=== PATIENT | female | born 1960 | race Caucasian/White ===

== ENCOUNTER → 2018-05-12 14:27 | Outpatient (CLI) | payer OTHER, SELFPAY ==
--- NOTE | 2018-05-12 14:29 | MM_ITS ---
. MM Dig screening mamm BI w/CAD CAD Screening ORDERING PHYSICIAN : Roque Lloyd MD PATIENT AGE: 57 years GENDER: Female COMPARISON: Previous mammograms: May 2015, May 2016, 2016 INDICATION: Screening mammogram. Previous lumpectomy of left breast. With radiation therapy. No new complaints Family history. Maternal aunt TECHNIQUE: Standard CC and MLO images were obtained. R2 CAD reviewed. FINDINGS: Diffuse some moderately dense heterogeneous fibroglandular elements are seen filling the central portion of breast bilaterally... Mammography is of decreased sensitivity RIGHT BREAST:Stable. No newareas of concern LEFT BREAST:Minor post lumpectomy scarring . Cc view with stable appearing minimal asymmetric density at the lateral left breast on cc view, stable and & it dissipates on the axillary cc view today no discrete or significant change since 2016 when technique consider. The left MLO view appear stable. Minimal postsurgical changes IMPRESSION: Stable bilateral mammogram No significant new findings Follow up one year recommended BI-RADS Category: 2 Benign Finding(s) RECOMMENDED FOLLOW-UP: 1YR - 1 YEAR FOLLOW-UP (A letter has been sent to the patient regarding results of the study.)
== END ==
PROVIDERS: PCP Family Medicine; Visit Provider Obstetrics & Gynecology
DX: Z12.31 Encounter for screening mammogram for malignant neoplasm of breast (principal)
CPT/HCPCS: 77067

== ENCOUNTER → 2019-06-02 15:31 | Outpatient (CLI) | payer MEDICARE, SELFPAY ==
--- NOTE | 2019-06-02 15:33 | XR_ITS ---
XR DEXA axial skeleton HISTORY: ITS.REASON: screening ORDERING PHYSICIAN: Roque Lloyd MD PATIENT AGE: 58 years COMPARISON: 05/15/2017 FINDINGS: The BMD measured at the forearm radius 33% is 0.749 g/sq cm which has a T score of -1.6 consistent with osteopenia. Decreased by 16.9% compared to the previous exam. Mean density of the hips has a T score of -0.5 which is decreased by 3.9%. IMPRESSION: Osteopenia with moderate fracture risk. Treatment is advised. Suggest follow-up exam May 2021.
--- NOTE | 2019-06-02 15:33 | MM_ITS ---
MM Dig screening mamm BI w/CAD CAD Screening COMPARISON: Digital mammograms with CAD 05/12/2018 and 05/15/2017 INDICATION: There is been previous lumpectomy left breast for malignancy with follow-up radiation therapy. There is a history of breast cancer patient's paternal aunt. TECHNIQUE: Standard CC and MLO images were obtained. R2 CAD reviewed. FINDINGS: There is a diffusely dense and heterogenic parenchymal pattern bilaterally. There is mild stable post lumpectomy scarring upper outer quadrant left breast. There is no new or suspicious lesion in either breast and there are no suspicious microcalcifications. There are couple benign-appearing calcifications right breast. IMPRESSION: Moderate diffuse breast density with no suspicious lesion seen BI-RADS Category: 2 Benign Finding(s) RECOMMENDED FOLLOW-UP: 1YR - 1 YEAR FOLLOW-UP (A letter has been sent to the patient regarding results of the study.)
== END ==
PROVIDERS: PCP Family Medicine; Visit Provider Obstetrics & Gynecology
DX: Z12.31 Encounter for screening mammogram for malignant neoplasm of breast (principal); Z78.0 Asymptomatic menopausal state
CPT/HCPCS: 77067; 77080

== ENCOUNTER → 2020-06-22 16:12 | Outpatient (CLI) | payer MEDICARE, SELFPAY ==
--- NOTE | 2020-06-22 16:13 | MM_ITS ---
PROCEDURE: MM DIG SCREENING MAMM BI W/CAD Digital Breast Tomosynthesis Included CLINICAL INDICATION: Routine Screening Mammogram There is a history of breast cancer patient's paternal aunt. There has been a previous biopsy left breast for benign disease. COMPARISON: [facility] DIG MAMM-SCREEN ISAIAS W/CAD from 05/15/2017 [facility] MM Dig screening mamm BI w/CAD from 05/12/2018 DIG MAMM-SCREEN ISAIAS from 06/02/2019 TECHNIQUE: Standard CC and MLO images and 3D Tomosynthesis was obtained. R2 CAD reviewed. FINDINGS: Prominent somewhat heterogenic fibroglandular densities are seen in the central portions of both breasts. There are couple of benign-appearing calcifications right breast. The tech nodules was unable to do hiral images in the cc projection due to the patient's severe scoliotic spinal curvature. There is a stable benign-appearing nodular density deep within the right breast. There is no suspicious lesion and no suspicious microcalcifications. IMPRESSION: Moderately and diffusely dense parenchymal pattern with no suspicious lesions seen BI-RAD Category: 2 Benign Finding(s) FOLLOW-UP: 1YR 1 Year Follow-up (A letter has been sent to the patient regarding results of the study.) Dictated by: Dr. Bert Austin MD 06/25/2020 16:[address] Bert Austin MD in [place] 06/25/2020 16:41
== END ==
PROVIDERS: PCP Family Medicine; Visit Provider Obstetrics & Gynecology
DX: Z12.31 Encounter for screening mammogram for malignant neoplasm of breast (principal)
CPT/HCPCS: 77063; 77067

== ENCOUNTER 2021-01-27 14:37 | Emergency (ER) | payer MEDICARE, SELFPAY ==
[2021-01-27 14:40] VITALS: BP 131/57; PULSE 108; RESP 20; TEMP 36.4; O2SAT 96; BMI 23.8
--- NOTE | 2021-01-27 15:02 | HMH.EDUTC ---
[facility] [place] Disposition Clinical Impression: Dog bite Qualifiers: Encounter type: initial encounter Qualified Code(s): W54.0XXA - Bitten by dog, initial encounter Disposition: Home, Self-Care Condition on Discharge: Good Instructions: DI for Dog Bite Additional Instructions: keep area clean and dry soak leave open to air unless possibility to getting dirty then cover may do vinegar soaks. 1/2 cup warm water to 2 tablespoons distilled vinegar soak for 15 mins and then dry if worsens return or be seen in ed follow up with pcp Prescriptions: Amoxicillin/Potassium Clav [Augmentin 785-125 Tablet] 1 tab PO Q12H 10 Days #20 tab Transmission Status: Pending to [facility] #[id number] Referrals: Heber Ocampo MD [Primary Care Provider] - Time of Disposition: 15:09 Medical Decision Making - Ramiro Inquiry Pt receiving controlled substance: No Vital Signs: 01/27/21 14:40 Temperature 97.5 F L Temperature Source Temporal Artery Scan Pulse Rate [Right Brachial] 108 H Respiratory Rate 20 Blood Pressure [Right Arm] 131/57 L Blood Pressure Mean [Right Arm] 81 Blood Pressure Source [Right Arm] Automatic Cuff Blood Pressure Position [Right Arm] Sitting 02 Sat by Pulse Oximetry 96 Oxygen Delivery Method Room Air [facility] [place] HPI - General Chief complaint: Urgent Treatment Center Stated complaint: [id number] dog bite right pinkie Time Seen by Provider: 01/27/21 15:02 Mode of Arrival: Ambulatory Source of Information: Patient Limitations: No Limitations Description of Symptoms (Recalled from Triage Doc. by RN): PATIENT C/O DOG BITE TO RIGHT PINKIE FRIDAY. DOG IS UP TO DATE ON VACCINES. PATIENT UNSURE OF LAST TDAP. GREEN DRAINAGE AND FOUL ODOR NOTED TO BITE HEENT Symptoms (Recalled from RN notes): No Resp Symptoms (Recalled from RN notes): No Skin Symptoms (Recalled from RN notes): Yes MS Symptoms (Recalled from RN notes): No Functional Status (Recalled from RN notes): WNL - History of Present Illness Provider Complaint: 60 yr old female presents for dog bite to rt pinkie by her dog on . Now has a foul odor and tender. - Related Data Home Medications Medication Instructions Recorded Confirmed albuterol sulfate 90 mcg/actuation 2 puff INHALATION Q6H PRN 05/07/18 05/11/19 breath activated powder inhaler anastrozole 1 mg tablet 1 mg PO DAILY tab 05/07/18 05/11/19 atorvastatin 20 mg tablet 10 mg PO DAILY tab 05/07/18 05/11/19 diazepam 5 mg tablet 5 mg PO .prn tab 05/07/18 05/11/19 duloxetine 30 mg capsule,delayed 30 mg PO BID 05/07/18 05/11/19 release esomeprazole magnesium 20 mg 40 mg PO DAILY cap 05/07/18 05/11/19 capsule,delayed release gabapentin 300 mg capsule 600 mg PO TID 05/07/18 05/11/19 tramadol 100 mg capsule 50 mg PO TID cap 05/07/18 05/11/19 24h,extended release(25-75) diclofenac sodium 75 mg PO 30 Days #60 tab 02/08/19 05/11/19 tablet,delayed release Previous Rx's Medication Instructions Recorded Amoxicillin/Potassium Clav 1 tab PO Q12H 10 Days #20 tab 01/27/21 [Augmentin 875-125 Tablet] Allergies Allergy/AdvReac Type Severity Reaction Status Date / Time No Known Allergies Allergy Verified 06/12/20 14:09 - Worker's Comp Is this a Worker's Comp case?: No [facility] History - Hepatitis A Screen Drug use history?: No High risk sexual behaviors?: No History of sexually transmitted infection?: No Currently employed?: No Childcare worker?: No Do you have indoor plumbing?: Yes Do you have electricity?: Yes Attestation statement:: This patient has been screened for Hepatitis A risk factors. I have reviewed the patient's past medical history: Yes Medical History: Reports:: Asthma, Cancer, Chronic Obstructive Pulmonary Disease (COPD), Depression, Diabetes Mellitus Type 1, Gastroesophageal Reflux Disease(GERD), Valvular Heart Disease Denies:: Diabetes Mellitus Type 2, Internal Pacemaker, Lung Disease, Seizures Other Medical History: Reports: Other Comment:
[2021-01-27 15:08] VITALS: BP 131/57; PULSE 108; RESP 20; TEMP 36.4; O2SAT 96
== END 2021-01-27 15:12 | disposition home or self-care (01) ==
PROVIDERS: Emergency Provider Nurse Practitioner Family; PCP Family Medicine
DX: S61.236A Puncture wound without foreign body of right little finger without damage to nail, initial encounter (principal); W54.1XXA Struck by dog, initial encounter; W54.0XXA Bitten by dog, initial encounter; Z23 Encounter for immunization; E10.9 Type 1 diabetes mellitus without complications; F17.210 Nicotine dependence, cigarettes, uncomplicated; Z79.899 Other long term (current) drug therapy; F33.1 Major depressive disorder, recurrent, moderate
CPT/HCPCS: G0463; 90471; 90715; 99202

== ENCOUNTER → 2021-06-25 15:28 | Outpatient (CLI) | payer MEDICARE, SELFPAY ==
--- NOTE | 2021-06-25 15:28 | MM_ITS ---
PROCEDURE: MM DIG SCREENING MAMM BI W/CAD Digital Breast Tomosynthesis Included CLINICAL INDICATION: screening mammogram COMPARISON: MG [facility] MM Dig screening mamm BI w/CAD from 05/12/2018 MG DIG MAMM-SCREEN ISAIAS from 06/02/2019 MG MM DIG SCREENING MAMM BI W/CAD from 06/22/2020 TECHNIQUE: Standard CC and MLO images and 3D Tomosynthesis was obtained. R2 CAD reviewed. FINDINGS: Heterogeneously dense fibroglandular tissue which may obscure mammographic findings. Benign-appearing nodules right breast unchanged. No malignant appearing mass or malignant-appearing microcalcification. No skin thickening or architectural distortion IMPRESSION: Benign findings. No evidence of malignancy BI-RAD Category: 2 Benign Finding FOLLOW-UP: 1 YR 1 Year Follow-up (A letter has been sent to the patient regarding results of the study.) Dictated by: Mykel Orantes MD 06/29/2021 12:03 Mykel Orantes MD in [place] 06/29/2021 12:03
== END ==
PROVIDERS: PCP Family Medicine; Visit Provider Obstetrics & Gynecology
DX: Z12.31 Encounter for screening mammogram for malignant neoplasm of breast (principal)
CPT/HCPCS: 77063; 77067

== ENCOUNTER → 2022-04-09 09:42 | Outpatient (POV) | payer MEDICARE, SELFPAY | PROVIDERS: Visit Provider Dermatology | DX: Z00.00 Encounter for general adult medical examination without abnormal findings (principal) ==

== ENCOUNTER → 2022-06-26 13:02 | Outpatient (CLI) | payer MEDICARE, SELFPAY ==
--- NOTE | 2022-06-26 13:02 | MM_ITS ---
PROCEDURE INFORMATION: Exam: MG Bilateral Screening 3D Mammography Exam date and time: 06/26/2022 12:59 PM Age: 61 years old Clinical indication: Screening examination TECHNIQUE: Imaging protocol: Bilateral Screening tomosynthesis and 2D mammography including computer-aided detection (CAD) when performed. COMPARISON: 1. MG MM DIG SCREENING MAMM BI W/CAD 06/25/2021 3:35 PM 2. MG MM DIG SCREENING MAMM BI W/CAD 06/22/2020 4:17 PM FINDINGS: MAMMOGRAPHY: Breast composition: The breasts are heterogeneously dense, which may obscure small masses. Mass: None. Architectural distortion: None. Calcifications: No suspicious calcifications. Asymmetric density: None. Skin thickening: None. Axillary adenopathy: None. IMPRESSION: No mammographic evidence of malignancy. Annual screening is recommended unless otherwise clinically indicated. ASSESSMENT: BI-RADS Category 1: Negative
== END ==
PROVIDERS: PCP Nurse Practitioner Family; Visit Provider Obstetrics & Gynecology
DX: Z12.31 Encounter for screening mammogram for malignant neoplasm of breast (principal)
CPT/HCPCS: 77063; 77067

== ENCOUNTER 2022-08-02 11:14 | Emergency (ER) | payer MEDICARE, SELFPAY ==
[2022-08-02 11:50] VITALS: BP 101/76; PULSE 102; RESP 17; TEMP 36.6; O2SAT 98; BMI 24.1
--- NOTE | 2022-08-02 11:53 | XR_ITS ---
FINAL REPORT CLINICAL HISTORY: PAIN FINDINGS: LUMBAR SPINE Three views demonstrate no acute fracture. There is severe levoscoliosis. Spinal rods are seen in the thoracolumbar region. There is severe degenerative change. There is 9 mm of lateral subluxation of L3 on 4. There is 8 mm of lateral subluxation of L4 on 5. Note is made of vascular calcification. IMPRESSION: Degenerative and postoperative changes as detailed above. Reviewed, Interpreted and Dictated by Bogdan Hatfield III, MD Transcribed by Oxana Jones Authenticated and [facility][1]
--- NOTE | 2022-08-02 11:54 | XR_ITS ---
FINAL REPORT CLINICAL HISTORY: PAIN FINDINGS: CERVICAL SPINE Three views demonstrate no acute fracture. There are moderate and severe degenerative changes. Multilevel disc osteophyte complexes are identified. There is vascular calcification. IMPRESSION: Moderate and severe degenerative changes. Reviewed, Interpreted and Dictated by Bogdan Hatfield III, MD Transcribed by Oxana Jones Authenticated and [facility]
--- NOTE | 2022-08-02 12:10 | EXP.UTC ---
Discharge Plan Disposition Patient Disposition: Home, Self-Care Condition: Good Prescriptions Prescriptions: New cyclobenzaprine 10 mg tablet 10 mg PO TID PRN (Reason: muscle spasm) Qty: 15 0RF No Action tramadol 100 mg capsule,ER biphase 24 hr 25-75 50 mg PO TID gabapentin [Neurontin] 300 mg capsule 600 mg PO TID duloxetine [Cymbalta] 30 mg capsule,delayed release(DR/EC) 30 mg PO BID albuterol sulfate 90 mcg/actuation aerosol powdr breath activated 2 puff INHALATION Q6H PRN (Reason: breathing) esomeprazole magnesium [Nexium] 20 mg capsule,delayed release(DR/EC) 40 mg PO DAILY diazepam [Valium] 5 mg tablet 5 mg PO .prn anastrozole [Arimidex] 1 mg tablet 1 mg PO DAILY atorvastatin [Lipitor] 20 mg tablet 10 mg PO DAILY naproxen 500 mg tablet PO BID Referrals Follow up/Referrals: Heber Ocampo MD [Primary Care Provider] - See instructions Activity Restrictions/Add. Instructions Additional Instructions/Restrictions: *Naproxen as prescribed *Remember you had a Toradol shot in the clinic today, which is similar to Motrin and Naproxen so dont take today *Not additional anti-inflammatory like motrin, aleve, advil with the above amount of ibuprofen. You can still take Tylenol every 4 hours as needed if you need something else for pain *Ice 20 minutes every 2 hours for the first 48 hours after the initial injury followed by moist heat every 20 minutes 3-4 times a day to affected area *Muscle relaxer every 8 hours as needed for muscle spasms but remember, it WILL cause drowsiness You cannot take it and drive, operate machinery or care for small children. *Keep this area active, no movement leads to more stiffness, However take it easy and avoid heavy lifting pushing or pulling *Follow up with you family doctor if no improvement for further treatment Clinical Impressions Clinical Impression: Muscle spasm Stand Alone Forms Stand Alone Forms: Work/School Release Instructions Patient Instructions: Cyclobenzaprine, DI for Muscle Spasm Discharge ED Provider: Fifi Kwon [facility] [place] HPI General Stated complaint: neck pain Mode of Arrival: Ambulatory Source of Information: Patient Limitations: No Limitations Time Seen by Provider: 08/02/22 12:11 Description of Symptoms (Recalled from Triage Doc. by RN): PATIENT C/O NECK STIFFNESS AND PAIN TO BACK OF HEAD SINCE FRIDAY MORNING HEENT Symptoms (Recalled from RN notes): Yes Resp Symptoms (Recalled from RN notes): No Skin Symptoms (Recalled from RN notes): No MS Symptoms (Recalled from RN notes): No Functional Status (Recalled from RN notes): WNL History of Present Illness Provider Complaint: Patient states that she woke up Tues and felt like she may have twisted her neck and since it has continued to get worse States that she feels tight and has pain in her neck when she tries to move or turn her head States that feels tight like it is locked up and having spasms State that today she was still hurting so she came in Related Data Home Medications Medication Instructions Recorded Confirmed albuterol sulfate 90 mcg/actuation 2 puff inhalation Q6H PRN breathing 05/07/18 05/11/19 breath activated powder inhaler anastrozole 1 mg tablet (Arimidex) 1 mg PO DAILY breast cancer 05/07/18 05/11/19 atorvastatin 20 mg tablet (Lipitor) 10 mg PO DAILY Cholesterol 05/07/18 05/11/19 diazepam 5 mg tablet (Valium) 5 mg PO .prn Anxiety 05/07/18 05/11/19 duloxetine 30 mg capsule,delayed 30 mg PO BID Depression 05/07/18 05/11/19 release (Cymbalta) esomeprazole magnesium 20 mg 40 mg PO DAILY stomach 05/07/18 05/11/19 capsule,delayed release (Nexium) gabapentin 300 mg capsule 600 mg PO TID Pain 05/07/18 05/11/19 (Neurontin) tramadol 100 mg capsule 50 mg PO TID Pain 05/07/18 05/11/19 24h,extended release(25-75) naproxen 500 mg tablet mg PO BID 05/15/21 Previous Rx's Medication Instructions Recorded cyclo
[2022-08-02 13:39] VITALS: BP 101/76; PULSE 102; RESP 17; TEMP 36.6; O2SAT 98
== END 2022-08-02 13:54 | disposition home or self-care (01) ==
PROVIDERS: Emergency Provider Nurse Practitioner; PCP Family Medicine
DX: M62.838 Other muscle spasm (principal); M54.2 Cervicalgia; R51.9 Headache, unspecified; K21.9 Gastro-esophageal reflux disease without esophagitis; E78.5 Hyperlipidemia, unspecified; J44.9 Chronic obstructive pulmonary disease, unspecified; F32.A Depression, unspecified; F17.210 Nicotine dependence, cigarettes, uncomplicated; Z98.1 Arthrodesis status; Z79.1 Long term (current) use of non-steroidal anti-inflammatories (NSAID); Z79.51 Long term (current) use of inhaled steroids; Z79.899 Other long term (current) drug therapy; X50.1XXA Overexertion from prolonged static or awkward postures, initial encounter
CPT/HCPCS: 72040; 72100; 96372; 99213; G0463

== ENCOUNTER → 2022-08-16 07:49 | Outpatient (CLI) | payer MEDICARE, SELFPAY ==
--- NOTE | 2022-08-16 07:55 | CT_ITS ---
FINAL REPORT CLINICAL HISTORY: CERVICALGIA,DDD,RADICULAR PAIN OF LT UPPER EXT FINDINGS: Axial CT images of the cervical spine were obtained without contrast. Sagittal and coronal reformatted images were also obtained. This study was performed with techniques to keep radiation doses as low as reasonably achievable (ALARA). Individualized dose reduction techniques using automated exposure control or adjustment of mA and/or kV according to the patient's size were employed. There is no evidence of fracture. There is levoscoliosis centered in the upper thoracic spine. There is multilevel degenerative change. There is no evidence of canal stenosis. No paraspinous soft tissue abnormality is seen. Limited images of the upper thorax are unremarkable. C2-3: There are uncovertebral osteophytes. There is mild right neural foraminal narrowing. C3-4: There is a disc osteophyte complex. There is mild right and moderate left neural foraminal narrowing. C4-5: There is disc osteophyte complex. There is mild right and severe left neural foraminal narrowing. C5-6: There is a disc osteophyte complex. There is moderate left neural foraminal narrowing. C6-7: There is a disc osteophyte complex. There is moderate left neural foraminal narrowing. C7-T1: There are uncovertebral osteophytes. There is mild bilateral neural foraminal narrowing. IMPRESSION: Multilevel degenerative disc disease in spondylosis as detailed above. Reviewed, Interpreted and Dictated by Bogdan Hatfield III, MD Transcribed by Rose Mary Puente Authenticated and [facility]
== END ==
PROVIDERS: PCP Nurse Practitioner Family; Visit Provider Nurse Practitioner Family
DX: M50.30 Other cervical disc degeneration, unspecified cervical region (principal); M79.2 Neuralgia and neuritis, unspecified
CPT/HCPCS: 72125

== ENCOUNTER → 2022-10-29 15:41 | Outpatient (CLI) | payer MEDICARE, SELFPAY | PROVIDERS: PCP Nurse Practitioner Family; Visit Provider Nurse Practitioner Family | DX: R00.0 Tachycardia, unspecified (principal) | CPT/HCPCS: 93225; 93226 ==

== ENCOUNTER → 2022-11-13 12:59 | Outpatient (CLI) | payer MEDICARE, SELFPAY ==
--- NOTE | 2022-11-13 13:04 | CT_ITS ---
FINAL REPORT CLINICAL HISTORY: H/O NICOTINE DEPENDENCE, 1 PPD X 43 YEARS FINDINGS: Low-Dose Chest CT CTDI vol (mGy): 2.90 DLP (mGy-cm): 97.95 Axial images were obtained from the lung apex to the mid abdomen by computed tomography. Low-dose protocol was utilized. FINDINGS: CHEST: There is no axillary adenopathy. There is no hilar or mediastinal adenopathy. The heart is proper size. There is no pericardial or pleural effusion. Limited images of the upper abdomen are unremarkable. Lung window images demonstrate mild scarring. There are several less than 5 mm left lung nodules. There is a calcified granuloma in the right lung base. There is dextroscoliosis with spinal rods in place. IMPRESSION: Lung RADS category 2. Recommend 12 month follow-up low-dose chest CT. Reviewed, Interpreted and Dictated by Bogdan Hatfield III, MD Transcribed by Dillon Cedeño Authenticated and [facility]
== END ==
PROVIDERS: PCP Nurse Practitioner Family; Visit Provider Nurse Practitioner Family
DX: Z87.891 Personal history of nicotine dependence (principal); Z12.2 Encounter for screening for malignant neoplasm of respiratory organs
CPT/HCPCS: 71271

== ENCOUNTER → 2023-06-12 15:44 | Outpatient (CLI) | payer MEDICARE, SELFPAY ==
[2023-06-12 17:06] LABS: Basophils # 0.1 K/mm3 (0-0.2); Basophils % 0.4 % (0.1-2.0); Eosinophils # 0.4 K/mm3 (0.0-0.4); Eosinophils % 3.4 % (0.1-12.0); Hemoglobin 12.9 g/dL (12.2-16.2); Lymphocytes % 24.5 % (10-50); Mean Corpuscular HGB Conc 31.6 g/dL (31.8-35.4); Mean Corpuscular Hemoglobin 28.2 pg (27.0-31.2); Mean Corpuscular Volume 89.3 fl (81-99); Mean Platelet Volume 8.2 fl (7.4-10.4); Monocytes # 0.5 K/mm3 (0.1-1.0); Monocytes % 3.8 % (1.7-9.3); Neutrophils # 8.2 K/mm3 (1.8-7.8); Neutrophils % 67.7 % (37.0-80.0); Platelet Count 344 K/mm3 (142-424); Red Blood Count 4.59 M/mm3 (4.20-5.40); White Blood Count 12.1 K/mm3 (4.8-10.8)
[2023-06-12 17:19] LABS: Alanine Aminotransferase 22 U/L (12-78); Albumin Level 4.3 g/dl (3.5-5.0); Alkaline Phosphatase 174 U/L (38-126); Anion Gap 10.6 mEq/L (5-15); Aspartate Amino Transferase 36 U/L (14-36); Bilirubin,Indirect 0.3 mg/dL (0.0-0.9); Bilirubin,Total 0.3 mg/dl (0.2-1.3); Bilirubin,Unconjugated 0.3 mg/dL (0.0-1.1); Blood Urea Nitrogen 13 mg/dl (7-17); Calcium 9.4 mg/dl (8.4-10.2); Carbon Dioxide 28 mmol/L (22.0-30.0); Chloride 104 mmol/L (98-107); Chol/HDL Ratio 2.8 (1-3.5); Cholesterol 235 mg/dl (140-200); Estimated Glomerular Filt Rate 73 ml/min (>60); GFR (African American) 88 ML/MIN (>60); Glucose 89 mg/dl (74-100); HDL Cholesterol 84 mg/dl (40-60); Magnesium 1.9 mg/dl (1.6-2.3); Potassium 4.6 mmoL/L (3.5-5.1); Sodium 138 mmol/L (136-145); Total Protein,Serum 6.8 g/dl (6.3-8.2); Triglycerides 152 mg/dl (30-150); VLDL Cholesterol 30 mg/dL (0-40)
[2023-06-12 17:30] LABS: Direct LDL Cholesterol 110.42 mg/dL (100-129)
[2023-06-12 17:36] LABS: Free T4 (Free Thyroxine) 1.23 ng/dl (0.78-2.19)
[2023-06-12 17:49] LABS: Thyroid Stimulating Hormone 2.31 uIU/mL (0.465-4.68)
== END ==
PROVIDERS: PCP Nurse Practitioner Family; Visit Provider Nurse Practitioner
DX: F17.200 Nicotine dependence, unspecified, uncomplicated (principal); I10 Essential (primary) hypertension; R00.2 Palpitations; R06.00 Dyspnea, unspecified; R07.89 Other chest pain; R42 Dizziness and giddiness; R94.31 Abnormal electrocardiogram [ECG] [EKG]; I63.9 Cerebral infarction, unspecified; I11.9 Hypertensive heart disease without heart failure; E11.9 Type 2 diabetes mellitus without complications
CPT/HCPCS: 36415; 80048; 80061; 80076; 83735; 84439; 84443; 85025

== ENCOUNTER → 2023-06-17 11:28 | Outpatient (CLI) | payer MEDICARE, SELFPAY ==
--- NOTE | 2023-06-17 11:28 | NM_ITS ---
APPROVED REPORT Exam: Nuclear Stress Test Indication: HTN, HYPERLIPIDEMIA, TOB USE, FM HX, C.P., SOB, PALPITATIONS, FTIGUE Patient Location: Outpatient Stress Tech: Fabiola Doll NM Tech:Roxanne Duran, ARRT RT (R)(N)(M) Ht: 5 ft 6 in Wt: 155 lbs Bra Size: 38B HR: 64 bpm BP: 106/62 mmHg BSA: 1.79 m2 Rhythm: NSR BMI: 25.0 History: HTN, HYPERLIPIDEMIA, TOB USE, FM HX, C.P., SOB, PALPITATIONS, FTIGUE PT COULD NOT LAY PRONE DUE TO SCOLIOSIS Procedure: Patient received 0.4 mg of intravenous Lexiscan, resting heart rate 64 bpm, resting blood pressure 106/62 mmHg, with Lexiscan maximum heart rate achieved was 93 bpm which is % of the maximum predicted heart rate and blood pressure was 133/52 mmHg. With Lexiscan, patient denied any complaint of chest pain. Cardiac Stress and Resting SPECT Images: Cardiac Stress and Resting SPECT images were obtained using technetium 99m Myoview 31.0 mCi stress and 10.75 mCi at rest. Patient could not lie on her abdomen for prone imaging. Therefore, prone stress imaging could not be obtained. This may affect the diagnostic interpretation of the study findings. Resting and stress imaging in supine position demonstrate no evidence of fixed or reversible perfusion defects. There is mild increase in transient ischemic dilatation ratio (TID 1.25), which may be suggestive of possible multivessel disease or balanced ischemia. Gated imaging demonstrates normal global and regional LV systolic function. LVEF is calculated at 66%. Conclusion: Patient could not lie on her abdomen for prone imaging. Therefore, prone stress imaging could not be obtained. This may affect the diagnostic interpretation of the study findings. No evidence of fixed or reversible perfusion defects. Mild increase in transient ischemic dilatation ratio (TID 1.25), which may be suggestive of possible multivessel disease or balanced ischemia. Gated imaging demonstrates normal global and regional LV systolic function. LVEF is calculated at 66%. Electronically signed by : Natividad Beth, 06/18/2023 22:52:01
--- NOTE | 2023-06-17 13:27 | CA_ITS ---
APPROVED REPORT Exam: Pharmacologic Technologist: Fabiola Doll Ht: 5 ft 7 in Wt: 155 lbs BSA: 1.81 m2 HR: 66 bpm BP: 106/62 mmHg Rhythm: NSR Indications: Chest pain Medical History Medications: Omeprazole,,,,, Metoprolol,,,,, Gabapentin,,,,, Diazepam,,,,, Atorvastatin,,,,, Naproxen,,,,, Albuterol,,,,, Tramadol,,,,, DulOXETINE,,,,, Stress Test Details Test: LEXISCAN HR Resting HR: 64 bpm Max Heart Rate (APMHR): 159 bpm Max HR Achieved: 93 bpm Target HR (85% APMHR): 135 bpm % of APMHR: 58 Recovery HR: 87 bpm BP Resting BP: 106.0/62.0 mmHg Max BP: 133.0/52.0 mmHg Recovery BP: 131.0/60.0 mmHg ECG Resting ECG: Normal sinus rhythm, early repolarization Stress ECG: No change Arrhythmia: None Recovery ECG: No change Recovery Arrhythmia: None Clinical Exercise duration: 04:00 min Highest Stage Achieved: Exercise capacity: n/a METs Stress ECG Conclusion Symptoms: Nausea, headache Arrhythmias/Ectoy: None ST-T Changes: No significant change compared to baseline Conclusion: Non-diagnostic Lexiscan ECG stress test due to baseline ST abnormalities in the setting of early repolarization. Myoview images are reported separately. Test Summary REST . . . . . . . Resting REST 02:40 . . 64 . 106/ 62 . . Stage 1 . . . . . . . Myoview Injected Stage 1 01:00 . . 87 . . . . Stage 2 01:00 . . 90 . 133/ 52 . . Stage 3 01:00 . . 90 . 119/ 55 . . Stage 4 01:00 . . 86 . 126/ 59 . Stop exercise at 04:00 RECOVERY 01:00 . . 87 . 127/ 56 . . RECOVERY 02:00 . . 84 . 127/ 56 . . RECOVERY 02:33 . . 87 . 131/ 60 . . Electronically signed by : Natividad Beth, 06/18/2023 22:48:54
== END ==
LOC: RAD 11:28
PROVIDERS: PCP Nurse Practitioner Family; Visit Provider Nurse Practitioner
DX: F17.200 Nicotine dependence, unspecified, uncomplicated (principal); I10 Essential (primary) hypertension; R06.00 Dyspnea, unspecified; R07.89 Other chest pain; R42 Dizziness and giddiness; R94.31 Abnormal electrocardiogram [ECG] [EKG]
CPT/HCPCS: 78452; 93017; A9502; J2785

== ENCOUNTER → 2023-06-20 15:19 | Outpatient (CLI) | payer MEDICARE, SELFPAY ==
--- NOTE | 2023-06-20 15:21 | MM_ITS ---
PROCEDURE INFORMATION: Exam: MG Bilateral Screening 3D Mammography Exam date and time: 06/20/2023 3:11 PM Age: 62 years old Clinical indication: Screening. Her paternal aunt had breast cancer. TECHNIQUE: Imaging protocol: Bilateral Screening tomosynthesis and 2D mammography including computer-aided detection (CAD) when performed. COMPARISON: 1. MG MM DIG SCREENING MAMM BI W/CAD 06/26/2022 12:59 PM 2. MG MM DIG SCREENING MAMM BI W/CAD 06/25/2021 3:35 PM 3. MG MM DIG SCREENING MAMM BI W/CAD 06/22/2020 4:17 PM 4. MG DIG MAMM-SCREEN ISAIAS 06/02/2019 3:51 PM FINDINGS: MAMMOGRAPHY: Breast composition: The breasts are heterogeneously dense, which may obscure small masses. Mass: None. Architectural distortion: None. Calcifications: No suspicious calcifications. Asymmetric density: None. Skin thickening: None. Axillary adenopathy: None. IMPRESSION: No mammographic evidence of malignancy. Annual screening is recommended unless otherwise clinically indicated. ASSESSMENT: BI-RADS Category 1: Negative
== END ==
PROVIDERS: PCP Nurse Practitioner Family; Visit Provider Nurse Practitioner Family
DX: Z12.31 Encounter for screening mammogram for malignant neoplasm of breast (principal)
CPT/HCPCS: 77063; 77067

== ENCOUNTER → 2023-06-26 12:46 | Outpatient (CLI) | payer MEDICARE, SELFPAY ==
--- NOTE | 2023-06-26 12:51 | CA_ITS ---
FINAL REPORT CLINICAL HISTORY: dizziness, smoker, sob, COPD, HTN, HLD COMPARISON: None FINDINGS: RIGHT CAROTID: CCA PSV -132 cm/sec ICA PSV -120 cm/sec ICA/CCA PSV ratio -1.3. Comments: Mild plaque disease is noted. LEFTCAROTID: CCA PSV -85. cm/sec ICA PSV -203. cm/sec ICA/CCA PSV ratio -2.4. Comments: Mild plaque disease is noted. Antegrade flow is seen within the vertebral arteries. IMPRESSION: Left carotid stenosis 50 to 69% diameter, with mild plaque. Right carotid stenosis less than 50% diameter, with mild plaque. Antegrade flow bilateral vertebral arteries. Reviewed, Interpreted and Dictated by Sue Fish MD Transcribed by Lorie Simpson Authenticated and [facility]
--- NOTE | 2023-06-26 12:51 | CA_ITS ---
APPROVED REPORT EXAM: Comprehensive 2D, Doppler, and color-flow Echocardiogram Director Of Community Education: Korina Cadena CRT Ht: 5 ft 7 in Wt: 155lbs BSA: 1.81 BP: 150/63 mmHg Indications: Abnormal ECG, COPD, Shortness of Breath, Palpitations, Hyperlipidemia, Hypertension/HDD, smoker TDE d/t lung interference 2D Dimensions LVOT 1.93 cm (M/F) 1.5-2.5 LA Volume 17.10 mL LA Volume Index 9.40 mL/m2 (M/F) 16-34 M-Mode Dimensions RVDd 2.07 cm (0.9-2.6) LA Diam 3.16 cm (1.9-4.0) LVDd 3.64 cm (3.5-5.7) Ao Diam 3.28 cm (2.0-3.7) LVDs 2.53 cm (3.5-5.7) IVSd 1.19 cm (0.6-1.1) PWd 0.84 cm (0.6-1.1) EF (Teich) 58.90% FS 30.50% EDV (Teich) 55.90 mL TAPSE 2.18 (<1.7) ESV (Teich) 23.00 mL LV Diastology E Decel Time 253.00 (160-240 msec) E/A Ratio 0.95 MED E' 5.50 (< 7 cm/sec) MED A' 8.10 cm/s E'/MED E' Ratio 13.02 (>14) LAT E' 6.60 (<10 cm/sec) LAT A' 9.70 cm/s E/LAT E' Ratio 10.85 (>14) Aortic Valve AO Peak GR. 3.20 mmHg Mitral Valve MV A Velocity 75.00 (40-130 cm/s) E/A Ratio 0.95 MV Decel. Time 253.00 (160-240 ms) Pulmonary Valve PV Peak Velocity 100.00 (50-150 cm/s) Tricuspid Valve TR P. Velocity 165.00 cm/s RAP Estimate 10.00 mmHg RVSP 20.80 mmHg Left Ventricle The left ventricle is normal size. The left ventricular systolic function is normal. The left ventricular ejection fraction is within the normal range. There is increased LV wall thickness Regional wall motion is normal. The left ventricular diastolic function is normal. LVEF is 65%. Right Ventricle The right ventricle is normal size. The right ventricular systolic function is normal. Atria The left atrium size is normal. The right atrium size is normal. Aortic Valve The aortic valve is trileaflet. The aortic valve opens well. There is no aortic valvular stenosis. Mild aortic regurgitation is present. Mitral Valve The mitral valve is normal in structure. Trace mitral regurgitation. Tricuspid Valve The tricuspid valve leaflets are thin and pliable. Trace tricuspid regurgitation. RVSP is normal. Pulmonic Valve The pulmonary valve is normal in structure. Trace pulmonic regurgitation. Great Vessels The aortic root is normal in size. IVC is normal in size and collapses >50% with inspiration. Pericardium There is no pericardial effusion. Other Information Study Quality: Technically Difficult. Technically limited study due to difficult accoustic windows. Conclusion Normal biventricular systolic function. Mild AI. Electronically signed by : Natividad Beth, 06/27/2023 11:44:01
== END ==
PROVIDERS: PCP Nurse Practitioner Family; Visit Provider Nurse Practitioner
DX: R42 Dizziness and giddiness (principal); F17.200 Nicotine dependence, unspecified, uncomplicated; I10 Essential (primary) hypertension; R00.2 Palpitations; R06.00 Dyspnea, unspecified; R07.89 Other chest pain; R94.31 Abnormal electrocardiogram [ECG] [EKG]
CPT/HCPCS: 93306; 93880

== ENCOUNTER → 2023-07-22 10:46 | Outpatient (CLI) | payer MEDICARE, SELFPAY ==
--- NOTE | 2023-07-22 10:50 | CT_ITS ---
FINAL REPORT TECHNIQUE: Axial CT images were performed through the head. Coronal reformatted images were submitted. This study was performed with techniques to keep radiation doses as low as reasonably achievable (ALARA). Individualized dose reduction techniques using automated exposure control or adjustment of mA and/or kV according to the patient's size were employed. CLINICAL HISTORY: SYNCOPE COMPARISON: None FINDINGS: The ventricles are normal in size. There is no evidence of hemorrhage. There is no mass or edema identified. There is no abnormal extra-axial fluid seen. The sinuses are well aerated, noted is resection of the medial lynn of the maxillary sinuses bilaterally. IMPRESSION: No acute intracranial process. Reviewed, Interpreted and Dictated by Micheal Mendoza MD Transcribed by Lorie Simpson Authenticated and [facility]
== END ==
LOC: RAD 10:47
PROVIDERS: PCP Nurse Practitioner Family; Visit Provider Nurse Practitioner Family
DX: R55 Syncope and collapse (principal)
CPT/HCPCS: 70450

== ENCOUNTER 2023-08-12 09:00 | Day surgery (SDC) | payer MEDICARE, SELFPAY ==
[2023-08-12] VITALS (10 sets, daily range): BP systolic 97–149; BP diastolic 53–83; PULSE 52–79; RESP 16–20; O2SAT 95–100; BMI 24.4
--- NOTE | 2023-08-12 07:10 | IR_ITS ---
APPROVED REPORT Patient Location: Outpatient PROCEDURES Left heart catheterization Left ventriculogram Selective coronary angiogram Intravascular ultrasound the right coronary INDICATION Accelerated angina pectoris, Risk factors for coronary disease, Angiographic ambiguity of the ostial dominant right coronary, SCAI INDICATION During diagnostic angiography each time the right coronary artery was engaged there was severe dampening. Patient has a history of breast cancer and received extra therapy to her mediastinum approximately 10 years ago. There was a concern for ostial disease in the right coronary artery therefore intravascular ultrasound interrogation was performed Informed consent was obtained prior to the procedure. COMPLICATIONS NONE Estimated Blood Loss: LESS THAN 10 ML TECHNIQUE One percent lidocaine used to anesthetize the right anterior aspect of the wrist. The right radial artery was accessed via the Seldinger technique. A 6 Israeli sheath was placed in the right radial artery. 2.5 mg of Verapamil, 800 mcg of nitroglycerin, 1mg Lidocaine and 5000 U Heparin were given through the arterial sheath. The papa catheter was also used to perform left heart catheterization, left ventriculogram and selective coronary angiogram. At the end the diagnostic angiogram therapeutic heparin was administered giving a therapeutic ACT and the guide catheter was placed in the right coronary followed by Choice PT extra-support wire. The catheter was then pulled out of the ostium of the right coronary due to severe dampening. Intravascular ultrasound probe was advanced in the ostial proximal segment was interrogated. This failed to demonstrate significant stenosis while the MLA was greater than 4 mm??? ostially and proximally. Because of the lack of significant plaque the apparatus was removed the sheath was removed and hemostasis was achieved using TR banding patient was transferred to the postop putting in stable addition ANGIOGRAPHIC RESULTS The left main artery Normal The left anterior descending artery Has proximal smooth 10 to 20% stenosis with mid vessel 10% luminal irregularities The circumflex artery Nondominant normal The right coronary artery Large and dominant with an ostial 30% stenosis followed by proximal and mid vessel 10 to 20% stenoses The RITTER ventriculogram reveals Hyperdynamic 80% The left ventricular end-diastolic pressure 20 mmHg Intravascular ultrasound interrogation indicated mild ostial atheromatous plaque with wide patency ostially and proximally IMPRESSION Mild nonflow limiting coronary disease Hyperdynamic ventricle Elevated LVEDP PLAN 1. Medical management for diastolic dysfunction 2. Risk factor modification Electronically signed by : Pop Woodward MD 08/12/2023 11:42:58
[2023-08-12 09:31] LABS: Basophils % 0.5 % (0.1-2.0); Eosinophils # 0.5 K/mm3 (0.0-0.4); Eosinophils % 5.8 % (0.1-12.0); Hematocrit 41.7 % (37.0-47.0); Hemoglobin 13.3 g/dL (12.2-16.2); Lymphocytes # 2.3 K/mm3 (0.7-4.5); Lymphocytes % 26.5 % (10-50); Mean Corpuscular HGB Conc 31.8 g/dL (31.8-35.4); Mean Corpuscular Volume 91.1 fl (81-99); Mean Platelet Volume 8.6 fl (7.4-10.4); Monocytes # 0.4 K/mm3 (0.1-1.0); Monocytes % 4.4 % (1.7-9.3); Neutrophils # 5.5 K/mm3 (1.8-7.8); Neutrophils % 62.8 % (37.0-80.0); Platelet Count 304 K/mm3 (142-424); Red Blood Count 4.58 M/mm3 (4.20-5.40); Red Cell Distribution Width 14.3 % (11.5-17.5); White Blood Count 8.8 K/mm3 (4.8-10.8)
[2023-08-12 09:41] LABS: Anion Gap 12.1 mEq/L (5-15); Blood Urea Nitrogen 11 mg/dl (7-17); Carbon Dioxide 28 mmol/L (22.0-30.0); Chloride 106 mmol/L (98-107); Creatinine Clearance Estimated 66 mL/min (50-200); Estimated Glomerular Filt Rate 73 ml/min (>60); GFR (African American) 88 ML/MIN (>60); Glucose 98 mg/dl (74-100); Potassium 4.1 mmoL/L (3.5-5.1); Sodium 142 mmol/L (136-145)
[2023-08-12 12:49] LABS: CATHL Activated Clotting Time 287 SEC (74-125)
== END 2023-08-12 14:35 | disposition home or self-care (01) ==
PROVIDERS: PCP Nurse Practitioner Family; Visit Provider Internal Medicine
DX: I10 Essential (primary) hypertension; I25.118 Atherosclerotic heart disease of native coronary artery with other forms of angina pectoris; I65.23 Occlusion and stenosis of bilateral carotid arteries; R00.2 Palpitations; R06.00 Dyspnea, unspecified; R42 Dizziness and giddiness; R94.31 Abnormal electrocardiogram [ECG] [EKG]; R94.39 Abnormal result of other cardiovascular function study; Z82.49 Family history of ischemic heart disease and other diseases of the circulatory system; F17.210 Nicotine dependence, cigarettes, uncomplicated; Z79.899 Other long term (current) drug therapy
CPT/HCPCS: 80048; 85025; 85347; 92978; 93458; 99152; C1725; C1769; J1644; Q9967

== ENCOUNTER 2023-09-29 08:21 | Day surgery (SDC) | payer MEDICARE, SELFPAY ==
[2023-09-29] VITALS (11 sets, daily range): BP systolic 97–187; BP diastolic 52–100; PULSE 66–90; RESP 15–20; O2SAT 94–99; BMI 25.3
--- NOTE | 2023-09-29 07:12 | IR_ITS ---
APPROVED REPORT Patient Location: Outpatient Thermodynamics Professor: MARZENA Sampson RT (R) PROCEDURES Catheter placed in the distal abdominal aorta Distal abdominal aortogram Catheter placement in the right external iliac artery Right external iliac artery antegrade angiogram with unilateral runoff to the right foot Drug-coated balloon angioplasty of the right SFA/popliteal artery at [facility] INDICATION [facility] claudication class III, Abnormal ESTEFANI, Atherosclerosis of the SFA and right popliteal artery Informed consent was obtained prior to the procedure. COMPLICATIONS None Estimated Blood Loss: Less than 10 mls TECHNIQUE 1% lidocaine used to anesthetize the left femoral groin. The left femoral artery was accessed via the Seldinger technique. A 5 [place] sheath was placed in the left femoral artery and a rim catheter was advanced to the distal abdominal aorta. Distal abdominal aortography was performed. Following this the wire was then placed into the right external iliac artery under fluoroscopic guidance and the rim catheter was advanced to the right external iliac artery. Antegrade angiography was performed with unilateral runoff to the right foot. Following this a long advantage wire was then placed down into the right superficial femoral artery and the 5 [place] sheath was exchanged for a long 6 [place] destination sheath. Therapeutic heparin was administered giving a therapeutic ACT. The advantage wire was used to traverse the stenosis. A 6 mm x 60 mm drug-coated balloon was deployed at 8 isha for 3 minutes reducing the severe to critical stenosis to 0%. Excellent angiographic results were obtained. There appeared to be a processing error in the final angiogram was not permanently saved. This was not recognized until after the procedure was completed. Final angiography did demonstrate wide patency of the right SFA popliteal artery with no dissection. At the end of the procedure the apparatus was removed the groin was reprepped gloves were changed sheath was removed hemostasis was achieved using Perclose device patient was transferred to the postop holding in stable condition ANGIOGRAPHIC RESULTS Distal abdominal aorta is moderately atheromatous with no focal stenosis greater than 10% Bilateral common iliac arteries are widely patent as are the bilater external iliac arteries. Bilateral internal iliac arteries are patent Right profunda femoris artery is widely patent. Right superficial femoral artery has mild mid vessel atheromatous plaque with a focal concentric 90% stenosis followed by an eccentric 80% stenosis at [facility]. Distal to these tandem stenoses right popliteal artery is widely patent and gives rise to an anterior tibialis artery posterior tibialis artery and peroneal artery. There is three-vessel runoff into the ankle on the right foot IMPRESSION Focal disease in the right SFA/right popliteal artery at [facility] with successful drug-coated balloon angioplasty reducing this severe tandem stenoses to 0% with 1 drug-coated balloon. PLAN 1. Xarelto 2.5 twice daily plus aspirin 81 mg daily 2. LDL less than 55 to be achieved with high intensity statin 3. Physical therapy 4. Aggressive risk factor modification 5. Avoidance of tobacco products Electronically signed by : Pop Woodward MD 09/29/2023 10:18:07
[2023-09-29 09:02] LABS: Basophils # 0.1 K/mm3 (0-0.2); Basophils % 0.7 % (0.1-2.0); Eosinophils # 0.4 K/mm3 (0.0-0.4); Hemoglobin 12.8 g/dL (12.2-16.2); Lymphocytes # 2.4 K/mm3 (0.7-4.5); Lymphocytes % 32.4 % (10-50); Mean Corpuscular HGB Conc 34.4 g/dL (31.8-35.4); Mean Corpuscular Hemoglobin 31.4 pg (27.0-31.2); Mean Corpuscular Volume 91.2 fl (81-99); Mean Platelet Volume 8.1 fl (7.4-10.4); Monocytes # 0.4 K/mm3 (0.1-1.0); Monocytes % 4.7 % (1.7-9.3); Neutrophils # 4.3 K/mm3 (1.8-7.8); Neutrophils % 57.1 % (37.0-80.0); Platelet Count 330 K/mm3 (142-424); Red Blood Count 4.06 M/mm3 (4.20-5.40); White Blood Count 7.4 K/mm3 (4.8-10.8)
[2023-09-29 09:10] LABS: Chloride 110 mmol/L (98-107); Potassium 3.7 mmoL/L (3.5-5.1); Sodium 141 mmol/L (136-145)
[2023-09-29 09:13] LABS: Anion Gap 9.7 mEq/L (5-15); Blood Urea Nitrogen 10 mg/dl (7-17); Carbon Dioxide 25 mmol/L (22.0-30.0); Creatinine Clearance Estimated 66 mL/min (50-200); Estimated Glomerular Filt Rate 85 ml/min (>60); GFR (African American) 103 ML/MIN (>60); Glucose 113 mg/dl (74-100)
[2023-09-29 14:29] LABS: CATHL Activated Clotting Time 307 SEC (74-125)
== END 2023-09-29 13:24 | disposition home or self-care (01) ==
PROVIDERS: PCP Nurse Practitioner Family; Visit Provider Internal Medicine
DX: I70.211 Atherosclerosis of native arteries of extremities with intermittent claudication, right leg (principal); F17.210 Nicotine dependence, cigarettes, uncomplicated; Z79.899 Other long term (current) drug therapy; I25.118 Atherosclerotic heart disease of native coronary artery with other forms of angina pectoris; J44.9 Chronic obstructive pulmonary disease, unspecified; E78.5 Hyperlipidemia, unspecified; Z82.49 Family history of ischemic heart disease and other diseases of the circulatory system; I65.23 Occlusion and stenosis of bilateral carotid arteries
CPT/HCPCS: 37224; 80048; 85025; 85347; 99152; 99153; C1725; C1760; C1766; C1769; C1894; J1644; Q9966

== ENCOUNTER → 2023-11-05 13:45 | Outpatient (CLI) | payer MEDICARE, SELFPAY ==
[2023-11-05 14:58] LABS: Alanine Aminotransferase 18 U/L (12-78); Alkaline Phosphatase 153 U/L (38-126); Aspartate Amino Transferase 28 U/L (14-36); Bilirubin,Direct 0.1 mg/dl (0.0-0.4); Bilirubin,Indirect 0.2 mg/dL (0.0-0.9); Bilirubin,Total 0.3 mg/dl (0.2-1.3); Bilirubin,Unconjugated 0.2 mg/dL (0.0-1.1); Chol/HDL Ratio 2.3 (1-3.5); Cholesterol 154 mg/dl (140-200); HDL Cholesterol 67 mg/dl (40-60); Total Protein,Serum 6.6 g/dl (6.3-8.2); Triglycerides 208 mg/dl (30-150); VLDL Cholesterol 42 mg/dL (0-40)
[2023-11-05 15:10] LABS: Direct LDL Cholesterol 64.68 mg/dL (100-129)
== END ==
PROVIDERS: PCP Family Medicine; Visit Provider Internal Medicine
DX: F17.200 Nicotine dependence, unspecified, uncomplicated (principal); I10 Essential (primary) hypertension; I25.10 Atherosclerotic heart disease of native coronary artery without angina pectoris; I65.29 Occlusion and stenosis of unspecified carotid artery; I73.9 Peripheral vascular disease, unspecified; R06.00 Dyspnea, unspecified; R42 Dizziness and giddiness; R94.31 Abnormal electrocardiogram [ECG] [EKG]; Z82.49 Family history of ischemic heart disease and other diseases of the circulatory system
CPT/HCPCS: 36415; 80061; 80076

== ENCOUNTER → 2023-11-13 14:20 | Outpatient (CLI) | payer MEDICARE, SELFPAY ==
--- NOTE | 2023-11-13 14:22 | CA_ITS ---
FINAL REPORT TECHNIQUE: Real-time imaging was performed of the extracranial carotid arteries in transverse and longitudinal planes, with color duplex evaluation of blood flow velocity. Spectral analysis was performed. The cervical vertebral arteries were also examined. CLINICAL HISTORY: TIMOTHY, SMOKER, HTN, HLD COMPARISON: None FINDINGS: NASCET technique is utilized for stenosis evaluation. Right carotid system (centimeters/second): CCA: 103 ICA: 125 ECA: 170 Vertebral artery: Antegrade ICA/CCA ratio: 1.95 Mild to moderate plaque is identified at the bifurcation. Left carotid system (centimeters/second): CCA: 88 ICA: 151.8 ECA: 120 Vertebral artery: Antegrade ICA/CCA ratio: 2.2 Mild to moderate plaque is identified at the bifurcation. IMPRESSION: Less than 50% right ICA stenosis. Less than 50% left ICA stenosis. Antegrade flow bilateral vertebral arteries. Reviewed, Interpreted and Dictated by Micheal Mendoza MD Transcribed by Lorie Simpson Authenticated and [facility]
== END ==
LOC: RT 14:22
PROVIDERS: PCP Family Medicine; Visit Provider Physician Assistant
DX: I65.23 Occlusion and stenosis of bilateral carotid arteries (principal); Z72.0 Tobacco use
CPT/HCPCS: 93880

== ENCOUNTER 2023-12-30 13:57 | Outpatient (CLI) | payer MEDICARE, SELFPAY ==
--- NOTE | 2023-12-30 14:04 | CT_ITS ---
FINAL REPORT CLINICAL HISTORY: SCREENING smoker 1/2 ppd x 44 years hx of breast cancer COMPARISON: 11/13/2022 FINDINGS: CT CHEST LOW DOSE SCREENING HISTORY: Screening exam for lung cancer. 63-year-old female, Current smoker, 22 pack year smoking history DOSE: CTDIvol: 2.9 mGy, DLP: 96.38 mGy*cm COMPARISON: 11/13/2022. TECHNIQUE: Axial CT without IV contrast administration using low dose protocol FINDINGS: No acute lung disease is present . There are a few small scattered 4 mm or less in size bilateral nodules, some are calcified. The overall appearance is stable, and consistent with limits. No pleural or pericardial effusion is seen . Advanced changes of scoliosis are identified. No adenopathy or mass lesion is present . IMPRESSION: Multiple 4 mm or less in size bilateral nodules, stable. LUNG RADS CATEGORY 2 RECOMMENDATION: 12 month LDCT follow up Reviewed, Interpreted and Dictated by Sue Fish MD Transcribed by Lorie Simpson Authenticated and . [facility]
== END 2023-12-30 23:59 ==
LOC: RAD 13:58
PROVIDERS: PCP Family Medicine; Visit Provider Nurse Practitioner
DX: Z12.2 Encounter for screening for malignant neoplasm of respiratory organs; Z87.891 Personal history of nicotine dependence; J44.9 Chronic obstructive pulmonary disease, unspecified
CPT/HCPCS: 71271

== ENCOUNTER 2024-02-02 14:15 | Outpatient (CLI) | payer MEDICARE, SELFPAY ==
--- NOTE | 2024-02-02 14:20 | XR_ITS ---
FINAL REPORT TECHNIQUE: 5 views CLINICAL HISTORY: neck pain that radiates into the left shoulder COMPARISON: None FINDINGS: There is no fracture present. There is no malalignment. There is mild and moderate degenerative change of the cervical spine. There is mild kyphosis present centered at the C5-6 level. There is mild left C4-5 neural foraminal narrowing, and moderate left C6-7 neuroforaminal narrowing. There is mild multilevel neural foraminal narrowing at multiple levels on the right side. IMPRESSION: Mild to moderate degenerative change, with multilevel neural foraminal narrowing as described above. Reviewed, Interpreted and Dictated by Bogdan Hatfield III, MD Transcribed by Lorie Simpson Authenticated and [facility]
== END 2024-02-02 23:59 ==
LOC: RAD 14:16
PROVIDERS: PCP Nurse Practitioner Family; Visit Provider Nurse Practitioner Family
DX: M54.2 Cervicalgia (principal)
CPT/HCPCS: 72050

== ENCOUNTER 2024-02-23 14:08 | Outpatient (CLI) | payer MEDICARE, SELFPAY ==
--- NOTE | 2024-02-23 14:12 | XR_ITS ---
FINAL REPORT CLINICAL HISTORY: low abd pressure FINDINGS: A single supine view of the abdomen was obtained. There is no prior for comparison. The bowel gas pattern is normal. There is a large amount of stool in the colon. There are no pathologic calcifications. Osseous structures demonstrate spinal rods in place. There is levoscoliosis. Calcifications in the pelvis are likely phleboliths. IMPRESSION: No acute intraabdominal abnormality. Large amount of stool. Reviewed, Interpreted and Dictated by Alana Riedr MD Transcribed by Eun Ag Authenticated and [facility]
== END 2024-02-23 23:59 ==
LOC: RAD 14:10
PROVIDERS: PCP Nurse Practitioner Family; Visit Provider Nurse Practitioner Family
DX: N39.0 Urinary tract infection, site not specified (principal); R10.2 Pelvic and perineal pain; R31.9 Hematuria, unspecified; R30.0 Dysuria; B96.29 Other Escherichia coli [E. coli] as the cause of diseases classified elsewhere
CPT/HCPCS: 74018; 87086

== ENCOUNTER 2024-02-26 16:00 | Outpatient (RCR) | payer MEDICARE, SELFPAY ==
--- NOTE | 2024-02-24 11:48 | HMH.PTOPEV ---
PT Outpatient Evaluation Rehab PT Outpatient Evaluation Start: 02/23/24 14:50 Freq: Status: Active Protocol: Document 02/23/24 14:51 MATTEO (Rec: 02/23/24 16:15 MATTEO [email or web address]) E-signed By Tracey Hernandez, PT Outpatient Therapy Subjective History Subjective History This is an initial evaluation for Denise Villagomez who presents with referral for Chronic neck pain. Pt with complaints of chronic neck pain that began originally in 2021. Pt reports these complaints insidiously worsened 2 weeks ago when she noticed sharp pain from her left lateral neck to left shoulder/shoulder blade when driving. Pt denies any known trauma that would lead to increase in symptoms. Pt has been using heat and laying down as non-pharm pain management techniques. Pt reports looking left and down aggrevates the pain the most. Denies numbness and tingling, vision changes, or nausea. PMH: Breast cancer (not active ), Osteopenia, Asthma, COPD, CAD, Depression, GERD, Hyperlipidemia, Mitral valve prolapse, Slipped intervertebral disc, Peters Francis placement [address] IMPRESSION: Multilevel degenerative disc disease in spondylosis. 2023 X-ray IMPRESSION: Mild to moderate degenerative change, with multilevel neural foraminal narrowing as described above. New diagnosis of cancer in past 12 No months? Chief Complaint Pain,Stiff Symptom Type Ache,Sharp,Dull Symptoms Relieved By Rest/Positioning,Heat,OTC Meds Symptoms Aggravated By Prone,Standing,Physical Activity,Twisting,Lifting Current Functional Limitations Reaching,Lifting,Housework, Desk Work/Reading,Driving, Standing,Sitting,Recreation Activity Symptom Description Constant but Variable Level of pain today (0-10) 5 Pain scale - at its best (0-10) 1 Pain scale - at its worst (0-10) 10 Cervical Eval Palpation Cervical Muscles L Cervical Paraspinal,L Suboccipital,L Upper Trapezius ,L Thoracic Paraspinals Cervical/Thoracic Palpation Findings Tenderness Posture Head/C-Spine Posture Sitting Position Neutral Position Flexibility Deficits Upper Trapezius Muscle Length (R) Moderate Tightness,(L) Moderate Tightness Levaetor Scapulae Muscle Length (R) Moderate Tightness,(L) Moderate Tightness Pectoralis Major Muscle Length (L) Mild Tightness Passive Joint Mobility Cervical PIVM Dec: L C2/3 L C3/4 L C4/5 AROM Cervical Spine Extension Active Range of 15 Motion (degrees) Cervical Spine Flexion Active Range of 20 Motion (degrees) Cervical Spine Right Lateral Flexion 20 Active Range of Motion (degrees) Cervical Spine Left Lateral Flexion 15 Active Range of Motion (degrees) Cervical Spine Right Rotation Active 20 Range of Motion (degrees) Cervical Spine Left Rotation Active 24 Range of Motion (degrees) MMT Right Deltoid (C5) 4 Good Biceps Brachii Strength Grade 5 Normal Wrist Extension Strength Grade 5 Normal Triceps Brachii Strength Grade 5 Normal Left Deltoid (C5) 4- Good- Biceps Brachii Strength Grade 4 Good Wrist Extension Strength Grade 5 Normal Triceps Brachii Strength Grade 5 Normal Special Test C-Spine Foraminal Compression (Spurling) Positive Left Test Neck Disability Index Neck Disability Index Section 1: Pain Intensity The pain is moderate at the moment Section 2: Personal Care (washing, I can look after myself dressing, etc.) normally but it causes extra pain Section 3: Lifting Pain prevents me from lifting heavy weights, but I can manage light to Section 4: Reading I can read as much as I want with moderate pain in my neck Section 5: Headaches I have slight headaches, which come infrequently Section 6: Concentration I can concentrate fully when I want to with no difficulty Section 7: Work I can't do any work at all Section 8: Driving I can't drive my car as long as I want because of moderate pain in my Section 9: Sleeping My sleep is slightly disturbed (less than 1 hr sleepless) Section 10: Recreation I can hardly do any recreation activities because of pain in my neck NDI Score 22 Outpatient Therapy Assessment Impairments Problems/Impairmments Palpation Tenderness,Impaired Range of Motion,Impaired Strength,Impaired Driving, Impaired Lifting,Impaired Work Activities,Impaired Desk/ Computer Activities,Subjective C/O Pain,Impaired Self Care/ Self Management Prognosis Rehab Potential Good Comment Pt presents with symptoms consistent with her diagnosis and imaging results. Pt with impaired cervical ROM, tight left cervical and shoulder muscultaure, 2/4 TTP L UT, decreased Cervical segmental mobility. Pt would benefit from skilled outpatient PT to address deficits and decrease pain. Clinical Impression Consistent with Diagnosis Yes Consistent with Chronic neck pain Short Term Goals Number of Weeks 3 Decreased Palpation Tenderness Yes: 1/4 TTP affected musculature Increase Range of Motion Yes: by 5 degrees in all planes Improve Neck Disability Index Score Yes: Improve by 4 points to demo decreased self-reported disability. Decrease Subjective C/O Pain Yes: At worst 7/10 to decrease pain severity Patient to be Ind w/ HEP Yes Half-Way Goals Number of Weeks 6 Decreased Palpation Tenderness Yes: 0/4 TTP L upper traps Increase Range of Motion Yes: Cervical AROM WFL Increase Strength Yes: 5/5 L scap stabilizers and UE. Improve Neck Disability Index Score Yes: Score reflecting mild disability. Decrease Subjective C/O Pain Yes: 48 hr pain average of 3/ 10 to indicate decreased severity and irritability Patient to be Ind w/ Advanced HEP Yes Outpatient Therapy Plan of Care Treatment Plan May Include Therapeutic Exercise Including Home Yes Exercise Program Manual Therapy Techniques Yes Neuromuscular Re-education Yes Therapeutic Activities to Return to Yes Previous Functional/Work Level ADL/Self Care Education Yes Dry Needling Yes Thermal Modalities Yes Electrical Stimulation Yes Ultrasound/Phonophoresis Yes Iontophoresis Yes Massage Yes Eval/Re-Eval Yes Aquatic Therapy Yes Frequency Times per week 1-2 times Duration Number of Weeks 5-6 weeks Addendums This patient is a candidate for social No or vocational rehab? Patient/Guardian verbally acknowledges Yes understanding of treatment program and consents to further treatment? Patient/Guardian verbally acknowledges Yes understanding of diagnosis, prognosis and goals for treatment? Eval Complexity PT Charges 47805 - Moderate Complexity Shoulder/Elbow Eval Shoulder Objective Measurements Elbow Objective Measurements PHYSICIAN CERTIFICATION: I certify the specified therapy services for Denise Villagomez are required, authorized, and reviewed every 30 days.
== END 2024-02-26 17:05 | disposition home or self-care (01) ==
LOC: PT 16:00
PROVIDERS: Visit Provider Nurse Practitioner Family
DX: Q76.49 Other congenital malformations of spine, not associated with scoliosis (principal); M54.50 Low back pain, unspecified; G89.29 Other chronic pain
CPT/HCPCS: 97110; 97163; 97530

== ENCOUNTER 2024-03-02 15:12 | Outpatient (CLI) | payer MEDICARE, SELFPAY ==
--- NOTE | 2024-03-02 15:13 | MR_ITS ---
FINAL REPORT CLINICAL HISTORY: Cervical neck pain, straight-backed syndrome. UNABLE TO TURN NECK. HEADACHE FINDINGS: Multiplanar MR imaging of the cervical spine was performed without contrast. On the sagittal T2-weighted images, disc degeneration is seen at multiple levels. There is no evidence of fracture. There is mild kyphosis centered at C5-6. The cervical spinal cord has an unremarkable appearance without evidence of mass, edema or syrinx. No significant canal stenosis is identified. The cervicomedullary junction is normal. C2-3: Bilateral uncovertebral osteophytes are seen, larger on the right. There is mild right neural foraminal narrowing. C3-4: A disc osteophyte complex is present. Mild right and severe left neural foraminal narrowing is seen. C4-5: A disc osteophyte complex is present. Mild right and severe left neural foraminal narrowing is seen. C5-6: A disc osteophyte complex is present. Mild left neural foraminal narrowing is seen. C6-7: A disc osteophyte complex is present. There is moderate left neural foraminal narrowing. C7-T1: A disc bulge is present with uncovertebral osteophytes. A small central disc protrusion is present. Mild bilateral neural foraminal narrowing is seen. IMPRESSION: Multilevel degenerative disc disease and spondylosis with bilateral neural foraminal narrowing as described. Small central C7-T1 disc protrusion. Authenticated and [facility]
== END 2024-03-02 23:59 ==
LOC: RAD 15:13
PROVIDERS: PCP Nurse Practitioner Family; Visit Provider Nurse Practitioner Family
DX: Q76.49 Other congenital malformations of spine, not associated with scoliosis (principal); M54.2 Cervicalgia
CPT/HCPCS: 72141; 76376

== ENCOUNTER 2024-06-11 16:29 | Outpatient (CLI) | payer MEDICARE, SELFPAY | END 2024-06-11 23:59 | disposition home or self-care (01) | LOC: LAB.DROPOF 16:30 | PROVIDERS: PCP Nurse Practitioner Family; Visit Provider Nurse Practitioner Family | DX: N39.0 Urinary tract infection, site not specified (principal); B96.20 Unspecified Escherichia coli [E. coli] as the cause of diseases classified elsewhere | CPT/HCPCS: 87086; 87088; 87186 ==

== ENCOUNTER 2024-07-05 14:43 | Outpatient (CLI) | payer MEDICARE, SELFPAY ==
--- NOTE | 2024-07-05 14:44 | MR_ITS ---
FINAL REPORT CLINICAL HISTORY: dizziness, falling, loss of balance COMPARISON: None FINDINGS: Multiplanar MR imaging of the brain was performed without contrast. There is mild age-appropriate atrophy. There are scattered foci of increased T2 signal in the cerebral white matter that have a nonspecific appearance but likely represent mild chronic ischemic/gliotic changes. There is no evidence of intracranial hemorrhage or mass. No abnormal ventricular dilatation is identified. No abnormal extra-axial fluid collection is seen. No abnormality is seen on the diffusion weighted images. The posterior fossa and brainstem are unremarkable. Normal major vessel vascular flow voids are seen. There is opacification of several mastoid air cells. IMPRESSION: Age-appropriate atrophy and mild chronic ischemic/gliotic changes. No acute intracranial abnormality. Reviewed, Interpreted and Dictated by Bogdan Hatfield III, MD Transcribed by Lorie Simpson Authenticated and [facility]
--- NOTE | 2024-07-05 15:29 | MM_ITS ---
PROCEDURE INFORMATION: Exam: MG Bilateral Screening 3D Mammography Exam date and time: 07/05/2024 3:13 PM Age: 63 years old Clinical indication: Screening examination TECHNIQUE: Imaging protocol: Bilateral Screening tomosynthesis and 2D mammography including computer-aided detection (CAD) when performed. COMPARISON: 1. MG MM DIG SCREENING MAMM BI W/CAD 06/20/2023 3:11 PM 2. MG MM DIG SCREENING MAMM BI W/CAD 06/26/2022 12:59 PM FINDINGS: MAMMOGRAPHY: Breast composition: The breasts are heterogeneously dense, which may obscure small masses. Mass: None. Architectural distortion: None. Calcifications: No suspicious calcifications. Asymmetric density: None. Skin thickening: None. Axillary adenopathy: None. IMPRESSION: No mammographic evidence of malignancy. Annual screening is recommended unless otherwise clinically indicated. ASSESSMENT: BI-RADS Category 1: Negative
== END 2024-07-05 23:59 | disposition home or self-care (01) ==
LOC: RAD 14:43
PROVIDERS: PCP Nurse Practitioner Family; Visit Provider Nurse Practitioner Family
DX: R26.89 Other abnormalities of gait and mobility (principal); R42 Dizziness and giddiness; Z12.31 Encounter for screening mammogram for malignant neoplasm of breast
CPT/HCPCS: 70551; 77063; 77067

== ENCOUNTER 2024-07-15 15:17 | Outpatient (CLI) | payer MEDICARE, SELFPAY ==
[2024-07-15 13:12] LABS: Microscopic, Urine URINE MICROSCOPIC (MICROSCOPIC)
[2024-07-15 14:27] LABS: Appearance,Urine CLEAR (Clear); Bilirubin,Urine Negative (Negative); Blood, Urine Negative (Negative); Color,Urine YELLOW (Yellow); Glucose,Urine (UA) Negative (Negative); Ketones,Urine Negative (Negative); Leukocyte Esterase,Urine 2+ (Negative); Nitrate,Urine Negative (Negative); Protein,Urine Negative (Negative); Urobilinogen,Urine 0.2 EU/dl (0.2)
[2024-07-15 15:21] LABS: WBC,Urine 50-100 #/hpf (0-3)
[2024-07-15 15:22] LABS: Bacteria,Urine 3+ /lpf; Squamous Epithelial Cell,Urine 20-50 #/hpf (0-5)
== END 2024-07-15 23:59 | disposition home or self-care (01) ==
LOC: LAB.DROPOF 15:17
PROVIDERS: PCP Nurse Practitioner Family; Visit Provider Nurse Practitioner Family
DX: R35.0 Frequency of micturition (principal); N39.0 Urinary tract infection, site not specified
CPT/HCPCS: 81001; 87086; 87088; 87186

== ENCOUNTER 2024-08-12 10:27 | Day surgery (SDC) | payer MEDICARE, SELFPAY ==
[2024-08-12 10:45] VITALS: BMI 24.5
[2024-08-12 10:46] VITALS: BP 137/74; PULSE 77; RESP 18; TEMP 36.2; O2SAT 99
--- NOTE | 2024-08-12 12:21 | EXP.TILT ---
Findings:: PROCEDURE: Tilt Table Test REQUESTING PROVIDER: Ama Armstrong MD INDICATION: Dizziness, falls, orthostatic hypotension BETA BLOCKERS: Metoprolol succinate 100 mg was taken approximately 11.5 hours prior to the test PRE-TEST VITAL SIGNS (supine): BP 107/64, HR 66 and sinus rhythm, O2 Sats 100% PROCEDURE SUMMARY: Patient was prepped per protocol, IV started, connected to heart, blood pressure and oxygen saturation monitors, and safety straps applied. She was then tilted upright to 70 degrees for a total of 30 minutes. Other than getting tired of standing, she denied any symptoms during the test. Specifically, she denied any dizziness, lightheadedness, near syncope or syncope. Her blood pressure remained basically within a normal range throughout the test with minimal fluctuations. Immediately after being placed upright her BP will to 132/70 (HR 71). Blood pressure remained relatively unchanged until after 24 minutes upright, when it dropped to 114/68, which was a 20 mmHg systolic drop from the previous reading. This was not associated with any symptoms. Five minutes later the blood pressure had risen to 123/72. Heart rate stayed in the 70s and low 80s while upright. Heart rhythm was normal sinus throughout. Oxygen saturation stayed in the high 90s to 100%. CONCLUSIONS: Unremarkable, asymptomatic tilt table test.
== END 2024-08-12 12:20 | disposition home or self-care (01) ==
PROVIDERS: PCP Nurse Practitioner Family; Visit Provider Internal Medicine
DX: R55 Syncope and collapse (principal); R42 Dizziness and giddiness; R29.6 Repeated falls; I95.1 Orthostatic hypotension; Z79.899 Other long term (current) drug therapy
CPT/HCPCS: 93660

== ENCOUNTER 2024-09-01 15:00 | Outpatient (RCR) | payer MEDICARE, SELFPAY ==
--- NOTE | 2024-08-24 16:27 | HMH.PTOPEV ---
PT Outpatient Evaluation Rehab PT Outpatient Evaluation Start: 08/24/24 16:12 Freq: Status: Active Protocol: Document 08/24/24 16:13 PHORNE (Rec: 08/24/24 16:27 PHORNE [id number]) E-signed By Jose Hernandez, PT Outpatient Therapy Subjective History Subjective History This is the initial PT eval for Denise Villagomez, 63 yowf who presents with c/o poor balance , dizziness, and falls. She reports most of her issues have been ongoing for ~ 1 yr. She does not reports vertigo, but just feels dizzy and sometime lightheaded. She has long hx of difficulty walking due to significant lumbar fusion with Evelin iveth placement at age 16. She also reports she is awaiting B eye cataract surgery with significant reduction in vision. She has PMH as follows : Arthritis Cancer Cataract GERD (gastroesophageal reflux disease) Anxiety Angina pectoris Abnormal ankle brachial index (ESTEFANI) Peripheral arterial disease Hypertension Coronary artery disease Mitral valve prolapse Slipped intervertebral disc Depression Urinary tract infection History of gastroesophageal reflux (GERD) COPD (chronic obstructive pulmonary disease) Asthma Hyperlipidemia New diagnosis of cancer in past 12 No months? Chief Complaint Other Symptoms Aggravated By Physical Activity,Walking Prior Functional Limitations None Current Functional Limitations Recreation Activity,Walking Symptom Description Intermittent,Activity Dependent Balance Eval Nystagmus Nystagmus Presence None Oculomotor Gaze Oculomotor Gaze Nml: Vergence Smooth Pursuit Saccades VOR Cancellation Cover/Uncover Cross Cover Rhomberg Feet Together/Eyes open/Stable Surface pass Feet Together/Eyes Closed/Stable Surface fail Feet Together/Eyes open/Unstable Surface fail Feet Together/Eyes Closed/Unstable fail Surface Dynamic Gait Index Test Protocol Gait Level Surface Mild Impairment Query Text: Instructions: Walk at your normal speed from here to the next elicia (20'). Grading: Elicia the lowest category that applies. Change in Gait Speed Normal Query Text: Instructions: Begin walking at your normal pace (for 5'), when I tell you go , walk as fast as you can (for 5'). When I tell you slow , walk as slowly as you can (for 5'). Grading: Elicia the lowest category that applies. Gait with Horizontal Head Turns Mild Impairment Query Text: Instructions: Begin walking at your normal pace. When I tell you to look right , keep walking straight, but turn you head to the right. Keep looking to the right unit I tell you look left , then keep walking straight and turn your head to the left. Keep your head to the left until I tell you look straight , then keep walking straight, but return you head to the center. Grading: Elicia the lowest category that applies. Gait with Vertical Head Turns Mild Impairment Query Text: Instructions: Begin walking at your normal pace. When I tell you to look up , keep walking staight, but tip your head up. Keep looking up until I tell you to look down , then keep walking straight and tip your head down. Keep your head down until I tell you look straight , then keep walking straight, but return your head to the center. Grading: Elicia the lowest category that applies. Gait and Pivot Turn Mild Impairment Query Text: Instructions: Begin walking at your normal pace. When I tell you turn and stop , turn as quickly as you can to face the opposite direction and stop. Grading: Elicia the lowest category that applies. Step Over Obstacle Normal Query Text: Instructions: Begin walking at your normal speed. When you come to the shoebox, step over it, not around it and keep walking. Grading: Elicia the lowest category that applies. Step Around Obstacles Normal Query Text: Instructions: Begin walking at normal speed. When you come to the first cone (about 6' away), walk around the right side of it. When you come to the second cone (6' past first cone), walk around it to the left. Grading: Elicia the lowest category that applies. Steps Moderate Impairment Query Text: Instructions: Walk up these stairs as you would at home. At the top, turn around and walk down. Grading: Elicia the lowest category that applies. Scoring Dynamic Gait Index Score 18 Outpatient Therapy Assessment Impairments Problems/Impairmments Impaired Balance,Impaired DGI Score,Impaired Self Care/Self Management Prognosis Rehab Potential Good Comment Skilled therapy is indicated to improve pts dynamic standing balance to return to PLOF. Clinical Impression Consistent with Diagnosis Yes Short Term Goals Number of Weeks 2 Improve Balance Yes: Pass rhomberg with eyes closed feet together Increase DGI Score Yes: > 20 Patient to be Ind w/ HEP Yes Casting Machine Set Up Operator Goals Number of Weeks 4 Improve Balance Yes: Pass rhomberg eyes open unstable surface Increase DGI Score Yes: > 22 Patient to be Ind w/ Advanced HEP Yes Outpatient Therapy Plan of Care Treatment Plan May Include Therapeutic Exercise Including Home Yes Exercise Program Manual Therapy Techniques Yes Neuromuscular Re-education Yes Therapeutic Activities to Return to Yes Previous Functional/Work Level Gait Training Yes ADL/Self Care Education Yes Orthotics/Bracing/Splinting Yes Eval/Re-Eval Yes Frequency Times per week 1-2 Duration Number of Weeks 4 Addendums This patient is a candidate for social No or vocational rehab? Patient/Guardian verbally acknowledges Yes understanding of treatment program and consents to further treatment? Patient/Guardian verbally acknowledges Yes understanding of diagnosis, prognosis and goals for treatment? Eval Complexity PT Charges 86210 - High Complexity Shoulder/Elbow Eval Shoulder Objective Measurements Elbow Objective Measurements PHYSICIAN CERTIFICATION: I certify the specified therapy services for Denise Villagomez are required, authorized, and reviewed every 30 days.
== END 2024-09-01 15:05 | disposition home or self-care (01) ==
LOC: PT 15:00
PROVIDERS: Visit Provider Specialist
DX: R42 Dizziness and giddiness (principal); I95.1 Orthostatic hypotension
CPT/HCPCS: 97112; 97163; 97530

== ENCOUNTER 2024-09-13 08:53 | Day surgery (SDC) | payer MEDICARE, SELFPAY ==
[2024-09-13] VITALS (12 sets, daily range): BP systolic 112–155; BP diastolic 60–97; PULSE 60–77; RESP 16–20; TEMP 36.9; O2SAT 94–99; BMI 24.8
--- NOTE | 2024-09-13 06:59 | IR_ITS ---
APPROVED REPORT Patient Location: Outpatient PROCEDURES Pigtail catheter placed in the abdominal aorta Abdominal aortography Repositioning of the catheter in the abdominal aorta Bilateral iliofemoral runoff Intravascular lithotripsy to the right superficial femoral artery Drug-coated balloon angioplasty to the right superficial femoral artery INDICATION Peripheral artery disease, Calcification in the right SFA/popliteal artery, Yue claudication class III Informed consent was obtained prior to the procedure. COMPLICATIONS none Estimated Blood Loss: less than 10ml TECHNIQUE 1% lidocaine used anesthetize the left groin the left femoral artery was accessed via the Salinger technique and a 5 Chilean sheath is placed in the left femoral artery. Pigtail catheter was advanced to the abdominal aorta where abdominal aortography was performed. The catheter was then repositioned and bilateral iliofemoral runoff was performed. Following this a rim catheter was placed in the distal abdominal aorta and used to cannulate the right common iliac artery. A long advantage guidewire was advanced to the right popliteal artery under fluoroscopic guidance. The short 5 Chilean sheath was exchanged for a long 6 [place]an destination sheath. Therapeutic heparin was administered giving a therapeutic ACT and a 300 cm choice extra support wire was placed distally into the popliteal artery. A 5.5 x 60 mm intravascular lithotripsy balloon was deployed at 4 isha with a total of 300 pulsations delivered reducing the calcified stenosis. A 6 mm x 40 mm drug-coated balloon was then advanced and deployed at 10 isha for 3 minutes to further reduce the stenosis. After achieving excellent angiographic results with wide patency of the right popliteal artery and right superficial femoral artery the apparatus was removed the groin is reprepped closure change sheath was removed and hemostasis was achieved using Perclose device patient was transferred to the postop putting in stable condition ANGIOGRAPHIC RESULTS Distal abdominal aorta has small aneurysmal dilatation with moderate atheromatous plaque no stenosis greater than 20%. The bilateral common internal and external iliac arteries are widely patent the bilateral common femoral arteries are patent the bilateral profunda femoris arteries are patent. The right superficial femoral artery is widely patent in the proximal and mid segment and distally at Jon's canal is a focal concentric 90% calcified stenosis. The remaining popliteal artery is widely patent with three-vessel runoff below the knee on the right. The left superficial femoral artery is widely patent with mild atheromatous plaque in the proximal segment and moderate plaque creating 30 to 40% stenosis at Jon's canal. The left popliteal artery is widely patent and there is three-vessel runoff below the left knee IMPRESSION Severe disease in the right SFA popliteal artery as described above Successful intravascular lithotripsy followed by drug-coated balloon angioplasty to the right SFA right popliteal artery at Jon's canal severe disease reduced to 0% as described above PLAN 1. Dual antiplatelet therapy for the next couple of days and then convert patient over to Xarelto 2.5 twice daily plus aspirin 81 mg daily 2. LDL less than 55 to achieve that high intensity statin 3. Consider further evaluation for neurologic pain involving the bilateral thighs. Patient has severe scoliosis and degenerative L-spine which is also likely giving a component of claudication Electronically signed by : Pop Woodward MD 09/13/2024 13:01:47
[2024-09-13 10:22] LABS: Basophils # 0.1 K/mm3 (0-0.2); Basophils % 0.9 % (0.1-2.0); Eosinophils # 0.2 K/mm3 (0.0-0.4); Eosinophils % 3.5 % (0.1-12.0); Hematocrit 39.4 % (37.0-47.0); Hemoglobin 12.9 g/dL (12.2-16.2); Lymphocytes # 1.8 K/mm3 (0.7-4.5); Lymphocytes % 25.8 % (10-50); Mean Corpuscular HGB Conc 32.7 g/dL (31.8-35.4); Mean Corpuscular Hemoglobin 30.4 pg (27.0-31.2); Mean Corpuscular Volume 93.1 fl (81-99); Mean Platelet Volume 8.1 fl (7.4-10.4); Monocytes # 0.4 K/mm3 (0.1-1.0); Monocytes % 5.7 % (1.7-9.3); Neutrophils # 4.4 K/mm3 (1.8-7.8); Neutrophils % 64.1 % (37.0-80.0); Platelet Count 303 K/mm3 (142-424); Red Blood Count 4.23 M/mm3 (4.20-5.40); White Blood Count 6.9 K/mm3 (4.8-10.8)
[2024-09-13 10:36] LABS: Chloride 107 mmol/L (98-107)
[2024-09-13 10:37] LABS: Sodium 138 mmol/L (136-145)
[2024-09-13 10:39] LABS: Blood Urea Nitrogen 11 mg/dl (7-17); Creatinine Clearance Estimated 64 mL/min (50-200); Estimated Glomerular Filt Rate 63 ml/min (>60); GFR (African American) 77 ML/MIN (>60)
[2024-09-13 10:40] LABS: Calcium 9.3 mg/dl (8.4-10.2); Carbon Dioxide 26 mmol/L (22.0-30.0); Glucose 103 mg/dl (74-100)
[2024-09-13] MEDS: diphenhydrAMINE 50MG/ML VIAL 50 MG IV (11:54)
[2024-09-13] MEDS: 0.9 % SODIUM CHLORIDE 500 ML 25 ML IV (11:54)
[2024-09-13] MEDS: LIDOCAINE 1% 10ML MDV 20 ML IJ (11:54)
[2024-09-13] MEDS: HEPARIN 1,000 UNITS/ML 10ML VIAL (CATH LAB) 10000 UNIT IV (11:54)
[2024-09-13] MEDS: HEPARIN 1,000 UNITS/500ML NS (CATH LAB) 3000 UNIT IV (11:55)
[2024-09-13] MEDS: MIDAZOLAM HCL 1MG/1ML 5ML VIAL 1 MG IV (12:04)
[2024-09-13] MEDS: FENTANYL 100MCG/2ML VIAL 50 MCG IV (12:05)
[2024-09-13] MEDS: IOHEXOL-240 100ML BOTTLE 180 ML IV (13:31)
[2024-09-13 14:19] LABS: CATHL Activated Clotting Time > 400 SEC (74-125)
== END 2024-09-13 15:35 | disposition home or self-care (01) ==
LOC: CATHLAB 08:56
PROVIDERS: PCP Nurse Practitioner Family; Visit Provider Internal Medicine
DX: I70.203 Unspecified atherosclerosis of native arteries of extremities, bilateral legs (principal); I77.1 Stricture of artery; I10 Essential (primary) hypertension; I25.118 Atherosclerotic heart disease of native coronary artery with other forms of angina pectoris; J44.9 Chronic obstructive pulmonary disease, unspecified; Z87.891 Personal history of nicotine dependence; I65.23 Occlusion and stenosis of bilateral carotid arteries; E78.5 Hyperlipidemia, unspecified; Z79.01 Long term (current) use of anticoagulants; Z82.49 Family history of ischemic heart disease and other diseases of the circulatory system; Z79.899 Other long term (current) drug therapy
CPT/HCPCS: 80048; 85025; 85347; 99152; 99153; C1725; C1760; C1766; C1769; C1894; C2623; C9764; J1200; J1644; J2250; J3010; Q9966

== ENCOUNTER 2024-09-21 14:58 | Outpatient (CLI) | payer MEDICARE, SELFPAY ==
[2024-09-21 15:33] LABS: Basophils # 0.1 K/mm3 (0-0.2); Basophils % 1.2 % (0.1-2.0); Eosinophils # 0.4 K/mm3 (0.0-0.4); Eosinophils % 3.5 % (0.1-12.0); Hematocrit 39.1 % (37.0-47.0); Lymphocytes # 3.5 K/mm3 (0.7-4.5); Lymphocytes % 32.4 % (10-50); Mean Corpuscular HGB Conc 33.3 g/dL (31.8-35.4); Mean Corpuscular Hemoglobin 30.3 pg (27.0-31.2); Mean Platelet Volume 8.6 fl (7.4-10.4); Monocytes # 0.6 K/mm3 (0.1-1.0); Monocytes % 5.2 % (1.7-9.3); Neutrophils # 6.2 K/mm3 (1.8-7.8); Neutrophils % 57.8 % (37.0-80.0); Platelet Count 327 K/mm3 (142-424); Red Cell Distribution Width 14.9 % (11.5-17.5); White Blood Count 10.7 K/mm3 (4.8-10.8)
[2024-09-21 15:46] LABS: Alanine Aminotransferase 23 U/L (12-78); Albumin Level 4.4 g/dl (3.5-5.0); Albumin/Globulin Ratio 1.6 (1.1-1.8); Alkaline Phosphatase 122 U/L (38-126); Anion Gap 6.9 mEq/L (5-15); Aspartate Amino Transferase 39 U/L (14-36); Bilirubin,Total 0.5 mg/dl (0.2-1.3); Blood Urea Nitrogen 10 mg/dl (7-17); Calcium 9.3 mg/dl (8.4-10.2); Carbon Dioxide 30 mmol/L (22.0-30.0); Chloride 108 mmol/L (98-107); Estimated Glomerular Filt Rate 63 ml/min (>60); GFR (African American) 77 ML/MIN (>60); Globulin 2.7 g/dL (1.3-3.2); Glucose 83 mg/dl (74-100); Potassium 3.9 mmoL/L (3.5-5.1); Sodium 141 mmol/L (136-145); Total Protein,Serum 7.1 g/dl (6.3-8.2)
== END 2024-09-21 23:59 | disposition home or self-care (01) ==
LOC: LAB 15:00
PROVIDERS: Internal Medicine Medical Oncology; PCP Nurse Practitioner Family; Visit Provider Internal Medicine
DX: I25.10 Atherosclerotic heart disease of native coronary artery without angina pectoris (principal); I10 Essential (primary) hypertension; Z87.891 Personal history of nicotine dependence
CPT/HCPCS: 36415; 80053; 85025

== ENCOUNTER 2024-10-01 13:47 | Outpatient (CLI) | payer MEDICARE, SELFPAY ==
--- NOTE | 2024-10-01 13:48 | CT_ITS ---
FINAL REPORT TECHNIQUE: Thin section axial images were obtained from the lung apices to the upper abdomen by computed tomography. Reformatted images were obtained and reviewed. This study was performed with techniques to keep radiation doses al low as reasonably achievable (ALARA). Individualized dose reduction techniques using automated exposure control or adjustment of mA and/or kV according to the patient's size were employed. CLINICAL HISTORY: .1 pack per day x 45 yrs, COPD, breast cancer in 2014 COMPARISON: 12/30/2023 FINDINGS: CHEST CT LOW DOSE CTDI vol (mGy): 2.90 DLP (mGy-cm): 93.25 There are mild coronary artery calcifications. There is no axillary adenopathy. There is no mediastinal or hilar mass or adenopathy. The heart is normal in size. There is no pericardial or pleural effusion. There is mild emphysema and mild pulmonary scarring. There are multiple calcified granulomas. There is a 4 mm nodule in the right major fissure seen on series 3, image 42 likely representing intrafissural lymph node. No new mass or nodule is identified. Limited images of the upper abdomen are unremarkable. IMPRESSION: Lung-RADS category 1. Recommend 12 month follow up low dose chest CT. No new mass or nodule. Reviewed, Interpreted and Dictated by Bogdan Hatfield III, MD Transcribed by Eun Ag Authenticated and [facility]
== END 2024-10-01 23:59 | disposition home or self-care (01) ==
LOC: RAD 13:48
PROVIDERS: PCP Nurse Practitioner Family; Visit Provider Nurse Practitioner Family
DX: Z12.2 Encounter for screening for malignant neoplasm of respiratory organs (principal); Z87.891 Personal history of nicotine dependence
CPT/HCPCS: 71271

== ENCOUNTER 2024-10-12 09:47 | Day surgery (SDC) | payer MEDICARE, SELFPAY ==
[2024-10-08 14:41] VITALS: BMI 25.2
[2024-10-12 12:10] VITALS: BP 119/65; PULSE 66; RESP 18; TEMP 36.3; O2SAT 98
[2024-10-12] MEDS: CYCLOPENTOLATE 2% OPHTH SOLN 2ML BOTTLE OP ×3 (12:10→12:20)
[2024-10-12] MEDS: TETRACAINE 0.5% OPTH SOL 15ML OP ×4 (12:10→12:35)
[2024-10-12] MEDS: PHENYLEPHRINE 2.5% OPHTH SOLN 2ML OP ×3 (12:10→12:20)
[2024-10-12 13:06] VITALS: BP 115/63; PULSE 66; RESP 18; O2SAT 98
[2024-10-12] MEDS: MIDAZOLAM 2MG/2ML VIAL 1 MG IV (13:09)
[2024-10-12 13:11] VITALS: BP 108/55; PULSE 65; RESP 18; O2SAT 98
[2024-10-12] MEDS: TOBRAMYCIN/DEX OPTH SUSP 2.5ML OP (13:14)
[2024-10-12] MEDS: TIMOLOL 0.5% OPTH SOLN 5ML OP (13:14)
[2024-10-12] MEDS: LIDOCAINE 1% PF 2ML AMPULE 2 ML IJ (13:15)
[2024-10-12] MEDS: SODIUM CHLORIDE 0.9% 10ML FLUSH SYRINGE 10 ML IV (13:15)
[2024-10-12 13:16] VITALS: BP 111/57; PULSE 64; RESP 18; O2SAT 99
[2024-10-12 13:21] VITALS: BP 119/57; PULSE 64; RESP 18; O2SAT 99
[2024-10-12 13:25] VITALS: BP 105/62; PULSE 74; RESP 18; TEMP 36.3; O2SAT 98
== END 2024-10-12 13:25 | disposition home or self-care (01) ==
PROVIDERS: PCP Nurse Practitioner Family; Visit Provider Ophthalmology
PROC: (CPT 66984; principal; 2024-10-12 12:30)
DX: H26.9 Unspecified cataract (principal)
CPT/HCPCS: 66984; J2250; V2632

== ENCOUNTER 2024-10-26 15:30 | Outpatient (CLI) | payer MEDICARE, SELFPAY ==
[2024-10-26 16:19] LABS: Microscopic, Urine URINE MICROSCOPIC (MICROSCOPIC)
[2024-10-26 22:51] LABS: Appearance,Urine CLEAR (Clear); Bilirubin,Urine Negative (Negative); Blood, Urine TRACE-I (Negative); Color,Urine YELLOW (Yellow); Glucose,Urine (UA) Negative (Negative); Ketones,Urine Negative (Negative); Leukocyte Esterase,Urine Negative (Negative); Nitrate,Urine Negative (Negative); Protein,Urine Negative (Negative); Specific Gravity, Urine 1.025 (1.005-1.030); Urobilinogen,Urine 0.2 EU/dl (0.2)
[2024-10-26 23:04] LABS: Bacteria,Urine 2+ /lpf; Calcium Oxalate Crystals,Urine 3+ /lpf; Mucus,Urine 1+ /lpf; Squamous Epithelial Cell,Urine 20-50 #/hpf (0-5)
== END 2024-10-26 23:59 | disposition home or self-care (01) ==
LOC: LAB.DROPOF 10-27 07:10
PROVIDERS: PCP Nurse Practitioner Family; Visit Provider Nurse Practitioner Family
DX: R30.0 Dysuria (principal); N39.0 Urinary tract infection, site not specified
CPT/HCPCS: 81001; 87086; 87088; 87186

== ENCOUNTER 2024-11-01 12:46 | Outpatient (CLI) | payer MEDICARE, SELFPAY | END 2024-11-01 23:59 | disposition home or self-care (01) | PROVIDERS: PCP Nurse Practitioner Family; Visit Provider Internal Medicine | DX: M79.605 Pain in left leg (principal); M79.604 Pain in right leg ==

== ENCOUNTER 2024-11-09 08:29 | Day surgery (SDC) | payer MEDICARE, SELFPAY ==
[2024-11-05 14:29] VITALS: BMI 25.0
[2024-11-09] MEDS: TETRACAINE 0.5% OPTH SOL 15ML OP ×3 (08:59→09:10)
[2024-11-09] MEDS: CYCLOPENTOLATE 2% OPHTH SOLN 2ML BOTTLE OP ×3 (08:59→09:10)
[2024-11-09] MEDS: PHENYLEPHRINE 2.5% OPHTH SOLN 2ML OP ×3 (08:59→09:10)
[2024-11-09 09:06] VITALS: BP 116/58; PULSE 68; RESP 18; O2SAT 95; BMI 25.0
[2024-11-09 10:50] VITALS: BP 103/51; PULSE 61; RESP 16; O2SAT 100
[2024-11-09] MEDS: MIDAZOLAM 2MG/2ML VIAL 2 MG (10:50)
[2024-11-09] MEDS: TIMOLOL 0.5% OPTH SOLN 5ML OP (10:53)
[2024-11-09] MEDS: TOBRAMYCIN/DEX OPTH SUSP 2.5ML OP (10:54)
[2024-11-09] MEDS: LIDOCAINE 1% PF 2ML AMPULE 2 ML IJ (10:54)
[2024-11-09] MEDS: SODIUM CHLORIDE 0.9% 10ML FLUSH SYRINGE 10 ML IV (10:54)
[2024-11-09 10:55] VITALS: BP 107/57; PULSE 61; RESP 16; O2SAT 100
[2024-11-09 11:00] VITALS: BP 102/57; PULSE 61; RESP 16; O2SAT 100
[2024-11-09 11:05] VITALS: BP 96/54; PULSE 62; RESP 16; O2SAT 100
[2024-11-09 11:29] VITALS: BP 94/59; PULSE 72; RESP 17; TEMP 36.4; O2SAT 92
== END 2024-11-09 11:25 | disposition home or self-care (01) ==
PROVIDERS: PCP Nurse Practitioner Family; Visit Provider Ophthalmology
PROC: (CPT 66984; principal; 2024-11-09 10:30)
DX: H26.9 Unspecified cataract (principal)
CPT/HCPCS: 66984; J2250; V2632

== ENCOUNTER 2024-11-29 13:05 | Outpatient (CLI) | payer MEDICARE, SELFPAY ==
[2024-11-29 13:11] LABS: Microscopic, Urine URINE MICROSCOPIC (MICROSCOPIC)
[2024-11-29 14:30] LABS: Appearance,Urine CLEAR (Clear); Bilirubin,Urine Negative (Negative); Blood, Urine Negative (Negative); Color,Urine YELLOW (Yellow); Glucose,Urine (UA) Negative (Negative); Ketones,Urine Negative (Negative); Leukocyte Esterase,Urine TRACE (Negative); Nitrate,Urine Negative (Negative); Protein,Urine Negative (Negative); Urobilinogen,Urine 0.2 EU/dl (0.2)
[2024-11-29 14:57] LABS: WBC,Urine Occasional #/hpf (0-3)
== END 2024-11-29 23:59 | disposition home or self-care (01) ==
LOC: LAB 13:05
PROVIDERS: PCP Nurse Practitioner Family; Visit Provider Nurse Practitioner Family
DX: R30.0 Dysuria (principal); N39.0 Urinary tract infection, site not specified; B96.20 Unspecified Escherichia coli [E. coli] as the cause of diseases classified elsewhere
CPT/HCPCS: 81001; 87086; 87088; 87186

== ENCOUNTER 2024-12-23 15:49 | Outpatient (CLI) | payer MEDICARE, SELFPAY ==
--- NOTE | 2024-12-23 15:50 | MR_ITS ---
PROCEDURE INFORMATION: Exam: MR Lumbar Spine Without Contrast Exam date and time: 12/23/2024 4:04 PM Age: 64 years old Clinical indication: Low back pain; Prior surgery; Surgery date: 6+ months; Surgery type: Evelin rods; Additional info: Bilateral leg pain TECHNIQUE: Imaging protocol: Magnetic resonance imaging of the lumbar spine without contrast. COMPARISON: CR XR LUMBAR SPINE 2-3V 08/02/2022 12:00 PM FINDINGS: Bones/joints: Severe levoscoliosis of the lumbar spine is visualized, with a measured Fam angle of 69 degrees. Scoliosis limits evaluation of the lumbar spine. There is left lateral subluxation of L3 on L4 and L4 on L5. Postoperative posterior fusion is visualized of the of the mid to upper lumbar and visualized thoracic spine, with magnetic susceptibility artifact associated with surgical hardware. Peters rods are visualized on prior radiographs. A mild decrease in vertebral height/compression fracture is visualized of the L5 vertebral body on the left side in the L4 vertebral body on the right side. There is no acute marrow edema at the L5 level, consistent with a chronic deformity. A few curvilinear foci of increased STIR signal intensity are seen within the bone marrow of the inferior aspect of the L4 vertebral body, although the compression deformity of L4 is chronic compared to prior radiographs. A mild chronic decrease in vertebral height is also identified of the L3 vertebral body on the right side. Spinal cord: The distal end of the conus medullaris is obscured by artifact. Multilevel findings: Degenerative changes are noted at multiple lumbar levels, with disc bulge/osteophyte complexes. Endplate irregularity is identified at L3-L4 and L4-L5. There is mild heterogeneous T2 signal intensity of the L1-L2 and L2-L3 discs. L1-L2: There is suboptimal evaluation of the spinal canal due to artifact. Artifact limits evaluation of the neural foramina, without severe neural foraminal narrowing bilaterally. L2-L3: There is suboptimal evaluation of the spinal canal and neural foramina due to artifact. L3-L4: No significant spinal canal stenosis. Moderate right neural foraminal narrowing is identified. There is no significant narrowing of the left neural foramen. Bilateral facet arthropathy. L4-L5: Bilateral facet arthropathy with hypertrophy of the ligamentum flavum. A broad-based disc bulge is visualized, with mild narrowing of the thecal sac. There is narrowing of both lateral recesses. Moderate to severe bilateral neural foraminal narrowing identified. Evaluation of the neural foramina is limited. L5-S1: The lowest lumbar intervertebral disc is labeled as L5-S1 for the purposes of this dictation. Bilateral facet arthropathy, left side greater than right. Minimal disc bulging is seen, without significant spinal canal stenosis. Mild left neural foraminal narrowing is identified. There is no significant narrowing of the right neural foramen. Soft tissues: Mild edema is seen within the subcutaneous tissues posterior to the sacrum. Artifact limits evaluation of the soft tissues. IMPRESSION: 1. Severe levoscoliosis of the lumbar spine is visualized. 2. There is left lateral subluxation of L3 on L4 and L4 on L5. 3. Postoperative posterior fusion is visualized of the of the mid to upper lumbar and visualized thoracic spine. This limits the evaluation of the lumbar spine. 4. A mild decrease in vertebral height/compression fracture is visualized of the L5 vertebral body on the left side in the L4 vertebral body on the right side. These are chronic deformities. A mild chronic decrease in vertebral height is also identified of the L3 vertebral body on the right side. 5. Degenerative changes are noted at multiple lumbar levels. 6. Mild narrowing of the thecal sac at L4-L5. There is suboptimal evaluation of the spinal canal at L1-L2 and L2-L3 due to artifact. 7. Neural foraminal narrowing is noted above-mentioned lumbar levels.
--- NOTE | 2024-12-23 15:50 | MR_ITS ---
PROCEDURE INFORMATION: Exam: MR Thoracic Spine Without Contrast Exam date and time: 12/23/2024 4:04 PM Age: 64 years old Clinical indication: Pain in thoracic spine; Prior surgery; Surgery date: 6+ months; Surgery type: Evelin rods; Additional info: Bilateral leg pain TECHNIQUE: Imaging protocol: Magnetic resonance imaging of the thoracic spine without contrast. COMPARISON: MR LUMBAR SPINE WO CON 12/23/2024 4:04 PM FINDINGS: Bones/joints: Extensive postoperative fusion is visualized involving the thoracic spine extending from T3 into the upper lumbar spine. Magnetic susceptibility artifact associated with surgical hardware limits this study. Dextroscoliosis is visualized of the mid to lower thoracic spine with levoscoliosis of the upper thoracic spine. Evaluation of scoliosis is limited by the absence of a coronal sequence. Spinal cord: There is suboptimal evaluation of the spinal cord at T4-5, T10-11, T11-12, and T12-L1 due to artifact. No cord compression is visualized at the remaining thoracic levels. Discs/Spinal canal/Neural foramina: Degenerative changes are visualized involving the thoracic and lower cervical spine, with decreased T2 signal intensity of discs. Disc bulge/osteophyte complexes are seen involving the upper thoracic and lower cervical spine. At C6-C7, there is endplate irregularity and disc bulging, without significant spinal canal stenosis. At C7-T1, a small central protrusion is visualized, without significant spinal canal stenosis. Mild posterior disc bulging is seen at T2-3, without significant spinal canal stenosis. There is suboptimal evaluation of the spinal canal at T4-5, T10-11, T11-12, and T12-L1 due to artifact. No significant spinal canal stenosis is visualized at the remaining thoracic levels. Mild right neural foraminal narrowing is visualized at C7-T1 and T1-2. Artifact limits evaluation of the left neural foramen at T4-5 and right neural foramina from T10-11 through T12-L1. Evaluation of the neural foramina is limited, although no severe neural foraminal narrowing is visualized at the remaining thoracic levels. Soft tissues: Limited by artifact. Lungs: Evaluation of the lungs on MRI is limited. There is heterogeneous signal intensity of the lungs on T1, although not appreciated on T2. This is of indeterminate clinical significance. IMPRESSION: 1. Extensive postoperative fusion is visualized involving the thoracic spine extending from T3 into the upper lumbar spine. Magnetic susceptibility artifact associated with surgical hardware limits this study. 2. Dextroscoliosis is visualized of the mid to lower thoracic spine, with levoscoliosis of the upper thoracic spine. 3. Degenerative changes are visualized involving the thoracic and lower cervical spine. 4. At C7-T1, a small central protrusion is visualized, without significant spinal canal stenosis. 5. Mild right neural foraminal narrowing is visualized at C7-T1 and T1-2. 6. There is heterogeneous signal intensity of the lungs on T1, although not appreciated on T2. This is of indeterminate clinical significance. Correlation with radiographs or CT of the chest is recommended, as clinically indicated.
== END 2024-12-23 23:59 | disposition home or self-care (01) ==
LOC: RAD 15:50
PROVIDERS: PCP Nurse Practitioner Family; Visit Provider Internal Medicine
DX: M79.604 Pain in right leg (principal); M79.605 Pain in left leg; Q76.49 Other congenital malformations of spine, not associated with scoliosis
CPT/HCPCS: 72146; 72148

== ENCOUNTER 2025-05-18 12:56 | Outpatient (CLI) | payer MEDICARE, SELFPAY ==
--- NOTE | 2025-05-18 13:00 | CT_ITS ---
FINAL REPORT TECHNIQUE: Post contrast axial imaging of the aorta and bilateral lower extremity was obtained and reviewed. This study was performed with techniques to keep radiation doses as low as reasonably achievable (ALARA). Individualized dose reduction techniques using automated exposure control or adjustment of mA and/or kV according to the patient's size were employed. CLINICAL HISTORY: claudication,pad,hip pain COMPARISON: None FINDINGS: The abdominal aorta is tortuous. Moderate vascular calcifications are noted of the abdominal aorta and iliac vessels. Stenosis measures less than 50% in the common and external iliac arteries. The celiac axis and SMA are patent. There are patent single renal arteries. Right: Scattered vascular calcifications are noted throughout the SFA. The SFA is continuous with the popliteal artery. There is three-vessel runoff to the foot. Left: There are scattered vascular calcifications throughout the SFA. Stenosis measures up to 50% of the adductor canal. The SFA is continuous to the popliteal artery. There is three-vessel runoff to the foot. Review of the remaining abdomen and pelvis demonstrates the liver is homogeneous. The gallbladder is present. The spleen, pancreas, adrenal glands, and kidneys are unremarkable. There is lumbar scoliosis convex to the left measuring about 65 degrees. The appendix is unremarkable. The urinary bladder is within normal limits. There is streak artifact from lower thoracic fusion hardware extending into the lumbar spine. IMPRESSION: Marked lumbar scoliosis convex to the left. Vascular calcifications in the iliac vessels and SFAs bilaterally. Left adductor canal stenosis 50%. Reviewed, Interpreted and Dictated by Micheal Mendoza MD Transcribed by Lisa Butler Authenticated and [facility]
--- OUTSIDE RECORDS SUMMARY | 2025-05-18 13:01 | XMS_ITS | Clinical Summary ---
Author Organization Healthcare Address [address] [place] [address] Care Team Providers Care Assistant Cross Country Coach Name Role Phone Heber Ocampo MD Primary Care Provider [phone] Social History Tobacco Use Types Packs/Day Years Used Date Smoking Tobacco: Every Day Comments Unknown Sex and Gender Information Value Date Recorded Sex Assigned at Not on file Legal Sex Female 7:46 PM EDT Gender Identity Not on file Sexual Orientation Not on file Last Filed Vital Signs Vital Sign Reading Time Taken Comments Blood Pressure - - Pulse - - Temperature - - Respiratory Rate - - Oxygen Saturation - - Inhaled Oxygen Concentration - - Weight 72.6 kg (160 lb 0.2 oz) 10/17/2016 2:24 P M EST Height 171.5 cm (5' 7.5 ) 10/17/2016 2:24 PM EST Body Mass Index 24.69 10/17/2016 2:24 PM EST Plan of Treatment Not on file Care Teams Assistant Cross Country Coach Relationship Specialty Start Date End Date Heber Ocampo MD [address] [place] [id number] PCP - General 04/13/21
[2025-05-18 13:19] LABS: Basophils # 0.1 K/mm3 (0-0.2); Basophils % 0.7 % (0.1-2.0); Eosinophils # 0.4 Kmm3 (0.0-0.4); Eosinophils % 4.2 % (0.1-12.0); Hematocrit 36.8 % (37.0-47.0); Hemoglobin 11.3 g/dL (12.2-16.2); Immature Granulocytes # 0.01 10^3uL; Immature Granulocytes % 0.1 %; Lymphocytes # 2.7 K/mm3 (0.7-4.5); Lymphocytes % 29.7 % (10-50); Mean Corpuscular HGB Conc 30.7 g/dL (31.8-35.4); Mean Corpuscular Hemoglobin 27.6 pg (27.0-31.2); Mean Corpuscular Volume 89.8 fl (81-99); Mean Platelet Volume 10.7 fl (7.4-10.4); Monocytes # 0.5 K/mm3 (0.1-1.0); Monocytes % 5.3 % (1.7-9.3); Neutrophils # 5.4 K/mm3 (1.8-7.8); Nucleated Red Blood Cells # 0 10^3/uL; Nucleated Red Blood Cells % 0 %; Platelet Count 321 K/mm3 (142-424); Red Cell Distribution Width 15.8 % (11.5-17.5); Red Cell Distribution Width-SD 51.8 fL
[2025-05-18 13:26] LABS: Albumin Level 4.1 g/dl (3.5-5.0); Chloride 107 mmol/L (98-107); Sodium 139 mmol/L (136-145)
[2025-05-18 13:27] LABS: Potassium 4.1 mmoL/L (3.5-5.1)
[2025-05-18 13:28] LABS: Blood Urea Nitrogen 8 mg/dl (7-17); Estimated Glomerular Filt Rate 63 ml/min (>60); GFR (African American) 77 ML/MIN (>60)
[2025-05-18 13:29] LABS: Alanine Aminotransferase 21 U/L (12-78); Alkaline Phosphatase 132 U/L (38-126); Anion Gap 8.1 mEq/L (5-15); Aspartate Amino Transferase 40 U/L (14-36); Bilirubin,Direct 0.2 mg/dl (0.0-0.4); Bilirubin,Indirect 0.1 mg/dL (0.0-0.9); Bilirubin,Total 0.3 mg/dl (0.2-1.3); Bilirubin,Unconjugated 0.1 mg/dL (0.0-1.1); Calcium 9.1 mg/dl (8.4-10.2); Carbon Dioxide 28 mmol/L (22.0-30.0); Cholesterol 168 mg/dl (140-200); Glucose 102 mg/dl (74-100); Total Protein,Serum 6.9 g/dl (6.3-8.2); Triglycerides 226 mg/dl (30-150); VLDL Cholesterol 45 mg/dL (0-40)
[2025-05-18 13:30] LABS: Chol/HDL Ratio 2.6 (1-3.5); HDL Cholesterol 64 mg/dl (40-60); Magnesium 1.7 mg/dl (1.6-2.3)
[2025-05-18 13:40] LABS: Direct LDL Cholesterol 43.74 mg/dL (100-129)
[2025-05-18] MEDS: 0.9 % SODIUM CHLORIDE 50 ML VIAL 100 ML IV (13:53)
[2025-05-18] MEDS: SODIUM CHLORIDE 0.9% 10ML SYR (RAD ONLY) 10 ML IV (13:53)
[2025-05-18] MEDS: IOPAMIDOL-370 (76%);100ML BOTTLE 120 ML IV (13:53)
[2025-05-18 14:03] LABS: Thyroid Stimulating Hormone 3.15 uIU/mL (0.465-4.68)
[2025-05-18 14:27] LABS: Free T4 (Free Thyroxine) 1.15 ng/dl (0.78-2.19)
[2025-05-18 20:16] LABS: Blood Urea Nitrogen 8 mg/dl (7-17); Estimated Glomerular Filt Rate 63 ml/min (>60); GFR (African American) 77 ML/MIN (>60)
== END 2025-05-18 23:59 | disposition home or self-care (01) ==
LOC: RAD 12:57
PROVIDERS: PCP Nurse Practitioner Family; Visit Provider Internal Medicine
DX: M99.3 Osseous stenosis of neural canal (principal); I70.203 Unspecified atherosclerosis of native arteries of extremities, bilateral legs; M41.86 Other forms of scoliosis, lumbar region; M25.551 Pain in right hip; M25.552 Pain in left hip; I10 Essential (primary) hypertension; E78.5 Hyperlipidemia, unspecified; I25.10 Atherosclerotic heart disease of native coronary artery without angina pectoris
CPT/HCPCS: 36415; 75635; 80048; 80061; 80076; 82565; 83735; 84439; 84443; 84520; 85025; Q9967

== ENCOUNTER 2025-05-24 12:56 | Outpatient (CLI) | payer MEDICARE, SELFPAY ==
--- NOTE | 2025-05-24 12:58 | XR_ITS ---
FINAL REPORT CLINICAL HISTORY: right hip pain FINDINGS: RIGHT HIP 3 views of the right hip demonstrate no acute fracture or dislocation. The joint spaces appear normal. The visualized bony structures are well aligned. No soft tissue abnormality is seen. IMPRESSION: No acute bony abnormality. Reviewed, Interpreted and Dictated by Sue Fish MD Transcribed by Eun Ag Authenticated and [facility]
--- OUTSIDE RECORDS SUMMARY | 2025-05-24 13:02 | XMS_ITS | Clinical Summary ---
Author Organization Healthcare Address [address] [place] [address] Care Team Providers Care Speech Language Therapist Name Role Phone Heber Ocampo MD Primary Care Provider [phone] Social History Tobacco Use Types Packs/Day Years [...] of Treatment Not on file Care Teams Speech Language Therapist Relationship Specialty Start Date End Date Heber Ocampo MD [address] [place] [id number] PCP - General 04/13/21
== END 2025-05-24 23:59 | disposition home or self-care (01) ==
LOC: RAD 12:56
PROVIDERS: PCP Nurse Practitioner Family; Visit Provider Physician Assistant
DX: M25.551 Pain in right hip (principal)
CPT/HCPCS: 73502

== ENCOUNTER 2025-06-14 14:08 | Outpatient (CLI) | payer MEDICARE, SELFPAY ==
--- OUTSIDE RECORDS SUMMARY | 2025-06-15 08:55 | XMS_ITS | Clinical Summary ---
Author Organization Healthcare Address [address] [place] [address] Care Team Providers Care Mineral Engineer Name Role Phone Heber Ocampo MD Primary Care Provider [phone] Social History Tobacco Use Types Packs/Day Years [...] of Treatment Not on file Care Teams Mineral Engineer Relationship Specialty Start Date End Date Heber Ocampo MD [address] [place] [id number] PCP - General 04/13/21
== END 2025-06-14 23:59 | disposition home or self-care (01) ==
LOC: LAB.DROPOF 06-15 08:52
PROVIDERS: PCP Nurse Practitioner Family; Visit Provider Nurse Practitioner Family
DX: N39.0 Urinary tract infection, site not specified (principal)
CPT/HCPCS: 87086; 87088; 87186

== ENCOUNTER 2025-07-08 14:24 | Outpatient (CLI) | payer MEDICARE, SELFPAY ==
--- OUTSIDE RECORDS SUMMARY | 2025-07-08 14:26 | XMS_ITS | Clinical Summary ---
Author Organization [facility] Address [address] [id number] Care Team Providers Care Conference Services Director Name Role Phone Heber Ocampo MD Primary Care Provider + Allergies No known active allergies Medications gabapentin (NEURONTIN) 300 MG capsule 0 08/31/2017 Active esomeprazole (nexIUM) 40 MG capsule 08/07/2017 Active traMADol (ULTRAM) 50 MG tablet 08/07/2017 Active atorvastatin (LIPITOR) 10 MG tablet take 1 tablet by mouth once daily 1 08/26/2017 Active diazePAM (VALIUM) 5 MG tablet 08/11/2017 Active diclofenac (VOLTAREN) 75 MG EC tablet 08/07/2017 Active DULoxetine (CYMBALTA) 30 MG capsule 0 08/17/2017 Active VENTOLIN HFA 108 (90 Base) MCG/ACT inhaler Inhale 2 puffs Every 4 (Four) Hours As Needed. 1 08/24/2019 Active anastrozole (ARIMIDEX) 1 MG tabletIndication s:Malignant neoplasm of left breast in female, estrogen receptor positive, unspecified site of breast Take 1 tablet by mouth Daily. 30 tablet 11/20/2021 Active Active Problems Problem Noted Date Diagnosed Date Breast cancer 08/20/2016 Cancer Staging:Pathologic:Stage IIA(T2, N0, cM0) - Signed by Lisa Luke MD on 09/02/2018 Overview (08/20/2016): Images from the original note were not included. Anxiety and depression 08/20/2016 Chronic back pain 08/20/2016 Overview (08/20/2016): Related to multiple prior suregeries and placement of Peters rods for scoliosis Scoliosis 08/20/2016 Asthma 08/20/2016 H/O left breast biopsy 08/20/2016 Social History Tobacco Use Types Packs/Day Years Used Date Smoking Tobacco: Former Cigarettes Q uit: 08/20/2017 Smokeless Tobacco: Never Alcohol Use Standard Drinks/Week Comments Yes 0 (1 standard drink = 0.6 oz pur e alcohol) very rarely PHQ-2 Answer Date Recorded Retired Total Score 0 11/30/2020 Abuse Screen Answer Date Recorded Unsafe at Home or Work/School Not on file Feels Threatened by Someone? Not on file 08/2023 Does Anyone Keep You from Co ntacting Others or Doint Things Outside the Home? Not on file 09/09/2023 Physical Sign of Abuse Present Not on file 1 Housing Stability Answer Date Recorded Current Living Arrangements Not on file 08/31 Potentially Unsafe Housing Conditions Not on reji e 09/09/2023 Family and Community Support Answer Kei e Recorded Help with Day-to-Day Activities Not on file 09/09/2023 Lonely or Isolated Not on file 09/09/2023 Employment Answer Date Recorded Do you want help finding or keeping work or a sirena b? Not on file 09/09/2023 Disabilities Answer Date Recorded Concentrating, Remembering, or Making Decisions Difficulty Not on file 09/09/2023 Doing Errands Independently Difficulty Not on fi le 09/09/2023 Education Answer Date Recorded Help with school or training? Not on file Preferred Language Not on file 09/09/2023 Comments Unknown Sex and Gender Information Value Date Recorded Sex Assigned at Not on file Legal Sex Female 1:41 PM EDT Gender Identity Not on file Sexual Orientation Not on file Last Filed Vital Signs Vital Sign Reading Time Taken Comments Blood Pressure 135/80 11/30/2020 1:40 PM EST Pulse 97 11/30/2020 1:40 PM EST Temperature 36.6 C (97.8 F) 11/30/2020 1:40 PM EST Respiratory Rate 16 11/30/2020 1:40 PM EST Oxygen Saturation 98% 11/30/2020 1:40 PM EST Inhaled Oxygen Concentration - - Weight 68.4 kg (150 lb 11.2 oz) 11/30/2020 1:40 PM EST Height 167.6 cm (5' 6 ) 11/30/2020 1:40 PM EST Body Mass Index 24.32 11/30/2020 1:40 PM EST Plan of Treatment Health Maintenance Due Date Last Done Comments Annual Gynecologic Pelvic and Breast Exam 1961 TDAP/TD VACCINES (1 - Tdap) 1980 COLOGUARD 2006 COLON CANCER SCREENING 5 YEAR SIGMOIDOSCOPY 2006 COLONOSCOPY [address] CANCER SCREENING 2006 CT COLONOGRAPHY 2006 FECAL OCCULT BLOOD TEST 2006 FIT Testing (1 year) 2006 Pneumococcal Vaccine 50+ (1 of 1 - PCV) 2011 ZOSTER VACCINE (1 of 2) 2011 ANNUAL PHYSICAL 08/11/2017 HEPATITIS C SCREENING 08/11/2017 MAMMOGRAM 06/02/2021 06/02/2019 COVID-19 Vaccine ( season) 2024 INFLUENZA VACCINE 08/31/2025 Insurance MEDICARE ADVANTAGE Care Teams Conference Services Director Relationship Specialty Start Date End Date Heber Ocampo MD PCP - General Family Medicine 09/03/17
--- OUTSIDE RECORDS SUMMARY | 2025-07-08 14:26 | XMS_ITS | Clinical Summary ---
Author Organization [facility] Address [address] [place] [address] Care Team Providers Care Clinical Trials Manager Name Role Phone Heber Ocampo MD Primary Care Provider [phone] Social History Tobacco Use Types Packs/Day Years [...] of Treatment Not on file Care Teams Clinical Trials Manager Relationship Specialty Start Date End Date Heber Ocampo MD [address] [place] [id number] PCP - General 04/13/21
--- NOTE | 2025-07-08 14:30 | MM_ITS ---
PROCEDURE INFORMATION: Exam: MG Bilateral Screening 3D Mammography Exam date and time: 07/08/2025 2:35 PM Age: 64 years old Clinical indication: Screening. Personal history of left breast cancer, lumpectomy and radiation 2014. TECHNIQUE: Imaging protocol: Bilateral Screening tomosynthesis and 2D mammography including computer-aided detection (CAD) when performed. COMPARISON: 1. MG MM DIG SCREENING MAMM BI W/CAD 07/05/2024 3:13 PM 2. MG MM DIG SCREENING MAMM BI W/CAD 06/20/2023 3:11 PM 3. MG MM DIG SCREENING MAMM BI W/CAD 06/26/2022 12:59 PM 4. MG MM DIG SCREENING MAMM BI W/CAD 06/25/2021 3:35 PM FINDINGS: MAMMOGRAPHY: Breast composition: The breasts are heterogeneously dense, which may obscure small masses. Mass: None. Architectural distortion: Stable left postsurgical changes. Calcifications: No suspicious calcifications. Asymmetric density: None. Skin thickening: None. Axillary adenopathy: None. IMPRESSION: No mammographic evidence of malignancy. Annual screening is recommended unless otherwise clinically indicated. In women diagnosed with breast cancer before age 50 or with personal histories of breast cancer and dense breasts, the [employer] recommends annual supplemental MRI in addition to yearly mammography. Alternative supplemental studies may include breast sonography or contrast enhanced mammography. ASSESSMENT: BI-RADS Category 2: Benign.
== END 2025-07-08 23:59 | disposition home or self-care (01) ==
LOC: RAD 14:24
PROVIDERS: PCP Nurse Practitioner Family; Visit Provider Nurse Practitioner Family
DX: Z12.31 Encounter for screening mammogram for malignant neoplasm of breast (principal); R92.333 Mammographic heterogeneous density, bilateral breasts; Z85.3 Personal history of malignant neoplasm of breast; Z90.12 Acquired absence of left breast and nipple; Z92.3 Personal history of irradiation
CPT/HCPCS: 77063; 77067

== ENCOUNTER 2025-08-29 13:22 | Outpatient (CLI) | payer MEDICARE, SELFPAY ==
--- OUTSIDE RECORDS SUMMARY | 2025-08-29 13:24 | XMS_ITS | Clinical Summary ---
Author Organization [facility] Address [address] [id number] Care Team Providers Care Bindery Technician Name Role Phone Heber Ocampo MD Primary [...] HEPATITIS C SCREENING 08/11/2017 MAMMOGRAM 06/02/2021 06/02/2019 INFLUENZA VACCINE 07/01/2025 Insurance MEDICARE ADVANTAGE Care Teams Bindery Technician Relationship Specialty Start Date End Date Heber Ocampo MD PCP - General Family Medicine 09/03/17
--- OUTSIDE RECORDS SUMMARY | 2025-08-29 13:24 | XMS_ITS | Patient Health Record ---
[facility] Address [address] [facility] [address] [place] [id number] Care Team Providers Care Elevator Constructor Supervisor Name Role Phone Matt Patterson Primary Care Provider Medications Medication SIG (Take, Route, Frequency, Duration) Notes Start Date End Date Status Diclofenac Sodium 75 MG 1 tab(s) orally 2 times a day; Duration: 12/28/2015 Active Arimidex 1 MG 1 tab(s) orally once a day Active traMADol HCl 50 MG 1 tab orally tid prn Active B-12 1000 MCG 1 tab(s) orally once a day Active Valium 5 MG 1 tab(s) orally bedtime prn Active Meclizine HCl 25 MG 1 tab three times a day prn 12/07/2010 Active Cymbalta 30 MG 1 cap(s) orally bid 02/01/2016 Active Vitamin D3 125 MCG (5000 UT) 1 cap(s) orally once a day 01/12/2014 Active NexIUM 40 MG 1 cap(s) orally once a day 12/11/2015 Active Contrave 8-90 MG week one: 1qam, week two:1 bid, week three:2qam and 1 qpm, Week 4 onward: 2 bid orally as directed 08/17/2015 Not-Taking Fluticasone Propionate 50 MCG/ACT 1 spray(s) each nostril once a day 11/28/2015 Not-Taking Flector 1.3 % 1 PATCH applied topically 2 times a day 04/19/2015 Not-Taking Anoro Ellipta 62.5-25 MCG/ACT 1 puff(s) inhaled once a day 11/28/2015 Active Premarin 1 TAB(S) ORALLY ONCE DAILY *Please review and pick correct strength-formulat ion from [email or web address] options. If intended option is not shown, discontinue and re-order from Quick Search* Not-Taking Albuterol Sulfate HFA 108 (90 Base) MCG/ACT 2 inhalations 4 times a day; Duration: 24 Active metroNIDAZOLE 0.75 % applied topically 2 times a day 01/01/2012 Not-Taking Ciprofloxacin HCl 500 MG 1 tab(s) orally twice a day 03/27/2016 Active Neurontin 300 MG 2 CAP(S) ORALLY THREE TIMES A DAY; Duration: 30 *Please review and pick correct strength-formulat ion from [email or web address] options. If intended option is not shown, discontinue and re-order from Quick Search* 08/30/2015 Active Clindamycin Phosphate 1 % 1 sharif applied topically 2 times a day; Duration: 30 day(s) 10/17/2014 Active Tretinoin 0.025 % 1 sharif applied topically once a day (at bedtime); Duration: 30 day(s) 10/17/2014 Active Immunizations Vaccine Route Administration Date Status Comme nts xAdministration of injection SC Subcutaneous 07/21/2015 Administered Problems Problem Type SNOMED Code ICD Code Onset Dates Problem Status W/U Status Risk Notes Problem Vitamin B12 deficiency (278739267) Vitamin B12 deficiency (266.2) Active confirmed Problem Gastroesophageal reflux disease (disorder) (569135895) GERD [Gastroesophageal reflux disease] (530.81) Active confirmed Problem Scoliosis (071235769) Scoliosis (737.43) Active confirmed Problem Hyperlipidemia (37427499) Hyperlipidemia (272.4) Active confirmed Problem Vitamin D deficiency (68812832) Vitamin D deficiency NOS (268.9) Active confirmed Problem Rosacea (338363802) Rosacea (695.3) Active conf irmed Problem Mixed anxiety and depressive disorder (538041850) Depression with anxiety (300.4) Active confirmed Plan Of Treatment No Information Insurance Providers Payer Name Payer Address Payer Phone Subscriber Number Group Number Insured Name Patient Relationship to Insured Coverage Start Date Coverage End Date [facility] [address] [address] [place] [phone] [id number] DAHIANA BILLINGSLEY Self - patient is the insured Medical (General) History Medical History History ICD Code depression rosacea cervical dysplasia mitral valve prolapse 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 Lumpectomy 05/2014 Hospitalization History Reason Date(Month/Year) above pneumonia 1985 l. Lumpectomy 05/2014
--- OUTSIDE RECORDS SUMMARY | 2025-08-29 13:24 | XMS_ITS | Clinical Summary ---
Author Organization [facility] Address [address] [place] [address] Care Team Providers Care Metal Welder Name Role Phone Heber Ocampo MD Primary Care Provider [phone] Social History Tobacco Use Types Packs/Day Years [...] of Treatment Not on file Care Teams Metal Welder Relationship Specialty Start Date End Date Heber Ocampo MD [address] [place] [id number] PCP - General 04/13/21
--- NOTE | 2025-08-29 13:26 | XR_ITS ---
FINAL REPORT CLINICAL HISTORY: SCREENING COMPARISON: 06/02/2019 FINDINGS: Using the left forearm, the bone mineral density of one third is 0.499 g/cm2, corresponding to T-score of -3.2, consistent with osteoporosis. Previously was 0.749 with a T-score of -1.6. Using the left hip, the bone mineral density of the total hip is 0.732 g/cm2, corresponding to a T-score of -1.7, consistent with osteopenia. Previously was 0.917 with a T-score of -0.5. Using the right hip, the bone mineral density of the femoral neck is 0.566 g/cm2, corresponding to a T-score of -2.5, consistent with osteoporosis. Previously was 1.004 with a T-score of -0.2. FRAX not reported because some T-score at or below -2.5. NOTE: T-score: Standard deviation compared with peak bone mass of young adult mean. *Following the recommendations of the International Society of Bone densitometry, classification of hip BMD is based on the lower of two T-scores; total hip or femoral neck. IMPRESSION: Diminished bone mineral density consistent with osteopenia lumbar spine and left hip with osteoporosis of the right hip. Reviewed, Interpreted and Dictated by Micheal Mendoza MD Transcribed by Lisa Butler Authenticated and [facility]
== END 2025-08-29 23:59 | disposition home or self-care (01) ==
LOC: RAD 13:22
PROVIDERS: PCP Nurse Practitioner Family; Visit Provider Orthopaedic Surgery
DX: M81.0 Age-related osteoporosis without current pathological fracture (principal); M85.88 Other specified disorders of bone density and structure, other site; M85.852 Other specified disorders of bone density and structure, left thigh
CPT/HCPCS: 77080

== ENCOUNTER 2025-09-12 13:35 | Outpatient (CLI) | payer MEDICARE, SELFPAY ==
--- NOTE | 2025-09-12 13:45 | CA_ITS ---
APPROVED REPORT EXAM: Comprehensive 2D, Doppler, and color-flow Echocardiogram Bagging Salvager: Korina Cadena CRT Ht: 5 ft 6 in Wt: 162lbs BSA: 1.83 BP: 112/53 mmHg Indications: COPD, Smoker, Leg stents, CAD, COPD, Hyperlipidemia, Hypertension/HDD 2D Dimensions LA Volume 17.80 mL LA Volume Index 9.50 mL/m2 (M/F) 16-34 M-Mode Dimensions RVDd 1.57 cm (0.9-2.6) LA Diam 2.52 cm (1.9-4.0) LVDd 3.64 cm (3.5-5.7) LVDs 2.76 cm (3.5-5.7) IVSd 1.34 cm (0.6-1.1) PWd 0.94 cm (0.6-1.1) EF (Teich) 49.00% FS 24.20% EDV (Teich) 55.90 mL ESV (Teich) 28.50 mL LV Diastology E Decel Time 187 (160-240 msec) E/A Ratio 1.02 MED A' 9.50 cm/s LAT A' 9.40 cm/s Aortic Valve AI PHT 573.00 ms AO Peak GR. 5.10 mmHg Mitral Valve MV A Velocity 76.0 (40-130 cm/s) E/A Ratio 1.02 Pulmonary Valve PV Peak Velocity 129.0 (50-150 cm/s) Tricuspid Valve TR P. Velocity 242.00 cm/s RAP Estimate 10.00 mmHg RVSP 33.40 mmHg Left Ventricle The left ventricle is normal size. Left ventricular systolic function is normal. The left ventricular ejection fraction is within the normal range. There is increased left ventricular wall thickness. There is normal LV segmental wall motion. The left ventricular diastolic function is normal. LVEF is 55% Right Ventricle The right ventricle is normal size. The right ventricular systolic function is normal. Atria The left atrium size is normal. The right atrium size is normal. There is no color Doppler evidence of interatrial shunt. Aortic Valve The aortic valve opens well. There is no hemodynamically significant aortic valvular stenosis. Mild aortic regurgitation is present. Mitral Valve The mitral valve is normal in structure. No evidence of mitral valve stenosis. Trace mitral regurgitation is present. Tricuspid Valve The tricuspid valve leaflets are thin and pliable. Trace tricuspid regurgitation. There is insufficient TR jet to estimate RVSP. Pulmonic Valve The pulmonary valve is grossly normal in structure. Mild pulmonic valve regurgitation is present. Great Vessels The aortic root is normal in size. IVC is normal in size and collapses >50% with inspiration. Pericardium There is no pericardial effusion. Other Information Study Quality: Fair Conclusion Normal biventricular systolic function. Mild AI, mild PI. Electronically signed by : Natividad Beth MD 09/14/2025 21:17:18
--- OUTSIDE RECORDS SUMMARY | 2025-09-12 13:51 | XMS_ITS | Clinical Summary ---
Author Organization [facility] Address [address] [place] [address] Care Team Providers Care Paper Cone Maker Name Role Phone Heber Ocampo MD Primary Care Provider Social History Tobacco Use Types Packs/Day Years [...] of Treatment Not on file Care Teams Paper Cone Maker Relationship Specialty Start Date End Date Heber Ocampo MD [address] [place] [id number] PCP - General 04/13/21
--- OUTSIDE RECORDS SUMMARY | 2025-09-12 13:51 | XMS_ITS | Patient Health Record ---
[facility] [address] [facility] [address] [place] [phone] Care Team Providers Care Archives Director Name Role Phone Matt Patterson Primary Care [...] review and pick correct strength-formulat ion from [employer] options. If intended option is not shown, [...] review and pick correct strength-formulat ion from [employer] options. If intended option is not shown, [...] Status Risk Notes Problem Vitamin B12 deficiency (366773570) Vitamin B12 deficiency (266.2) Active confirmed Problem Gastroesophageal reflux disease (disorder) (115185965) GERD [Gastroesophageal reflux disease] (530.81) Active confirmed Problem Scoliosis (925727216) Scoliosis (737.43) Active confirmed Problem Hyperlipidemia (38779527) Hyperlipidemia (272.4) Active confirmed Problem Vitamin D deficiency (26587949) Vitamin D deficiency NOS (268.9) Active confirmed Problem Rosacea (532643519) Rosacea (695.3) Active conf irmed Problem Mixed anxiety and depressive disorder (243443439) Depression with anxiety (300.4) Active confirmed Plan Of Treatment No Information Insurance Providers Payer Name Payer Address Payer Phone Subscriber Number Group Number Insured Name Patient Relationship to Insured Coverage Start Date Coverage End Date [facility] [address] [address] [place] [phone] [id number] DAHIANA BILLINGSLEY Self - patient is the [...]
--- OUTSIDE RECORDS SUMMARY | 2025-09-12 13:51 | XMS_ITS | Clinical Summary ---
Author Organization [facility] Address [address] [phone] Care Team Providers Care Block Saw Operator Name Role Phone Heber Ocampo MD Primary [...] VACCINE 07/01/2025 Insurance MEDICARE ADVANTAGE Care Teams Block Saw Operator Relationship Specialty Start Date End Date Heber Ocampo MD PCP - General Family Medicine 09/03/17
--- NOTE | 2025-09-12 14:30 | CA_ITS ---
FINAL REPORT TECHNIQUE: Guevara scale, color and spectral doppler images of the bilateral carotid arteries were obtained. CLINICAL HISTORY: HTN, HLD, COPD, SMOKER FINDINGS: Peak systolic velocity in the right internal carotid artery is 110 cm/sec. The internal carotid to common carotid artery ratio is 1.8. There is no significant carotid artery stenosis. There is mild to moderate plaque formation. The right vertebral artery is normal in direction. Peak systolic velocity in the left internal carotid artery is 114 cm/sec. The internal carotid to common carotid artery ratio is 1.8. There is no significant carotid artery stenosis and no significant plaque formation. The left vertebral artery is normal in direction. IMPRESSION: Less than 50% carotid artery stenosis. Antegrade flow of the vertebral arteries. Reviewed, Interpreted and Dictated by Alana Rider MD Transcribed by Oxana Jones Authenticated and [facility]
== END 2025-09-12 23:59 | disposition home or self-care (01) ==
LOC: RT 13:35
PROVIDERS: PCP Nurse Practitioner Family; Visit Provider Internal Medicine
DX: I65.23 Occlusion and stenosis of bilateral carotid arteries (principal); I08.8 Other rheumatic multiple valve diseases; I73.9 Peripheral vascular disease, unspecified; R94.31 Abnormal electrocardiogram [ECG] [EKG]; R42 Dizziness and giddiness; I10 Essential (primary) hypertension; I25.10 Atherosclerotic heart disease of native coronary artery without angina pectoris; J44.9 Chronic obstructive pulmonary disease, unspecified; F17.200 Nicotine dependence, unspecified, uncomplicated; Z95.828 Presence of other vascular implants and grafts; E78.5 Hyperlipidemia, unspecified
CPT/HCPCS: 93306; 93880

== ENCOUNTER 2025-10-24 09:28 | Outpatient (CLI) | payer MEDICARE, SELFPAY ==
--- OUTSIDE RECORDS SUMMARY | 2025-10-24 09:34 | XMS_ITS | Clinical Summary ---
Author Organization [facility] Address [address] [phone] Care Team Providers Care Electrical Worker Name Role Phone Heber Ocampo MD Primary [...] VACCINE 07/01/2025 Insurance MEDICARE ADVANTAGE Care Teams Electrical Worker Relationship Specialty Start Date End Date Heber Ocampo MD PCP - General Family Medicine 09/03/17
--- OUTSIDE RECORDS SUMMARY | 2025-10-24 09:34 | XMS_ITS | Clinical Summary ---
Author Organization [facility] Address [address] [place] [address] Care Team Providers Care Chief Chemist Name Role Phone Heber Ocampo MD Primary Care Provider [phone] Social History Tobacco Use Types Packs/Day Years [...] of Treatment Not on file Care Teams Chief Chemist Relationship Specialty Start Date End Date Heber Ocampo MD [address] [place] [id number] PCP - General 04/13/21
[2025-10-24 10:30] LABS: Alanine Aminotransferase 18 U/L (12-78); Albumin Level 4.2 g/dl (3.5-5.0); Albumin/Globulin Ratio 1.8 (1.1-1.8); Alkaline Phosphatase 153 U/L (38-126); Anion Gap 11.0 mEq/L (5-15); Aspartate Amino Transferase 29 U/L (14-36); Bilirubin,Total 0.6 mg/dl (0.2-1.3); Blood Urea Nitrogen 9 mg/dl (7-17); Calcium 9.5 mg/dl (8.4-10.2); Carbon Dioxide 24 mmol/L (22.0-30.0); Chloride 107 mmol/L (98-107); Creatinine,Serum 0.90 mg/dl (0.52-1.04); Estimated Glomerular Filt Rate 63 ml/min (>60); GFR (African American) 77 ML/MIN (>60); Globulin 2.4 g/dL (1.3-3.2); Glucose 89 mg/dl (74-100); Potassium 4.0 mmoL/L (3.5-5.1); Sodium 138 mmol/L (136-145); Total Protein,Serum 6.6 g/dl (6.3-8.2)
[2025-10-24 10:46] LABS: 25-OH Vitamin D, Total 78.1 ng/mL (30-100)
== END 2025-10-24 23:59 | disposition home or self-care (01) ==
LOC: LAB 09:29
PROVIDERS: PCP Nurse Practitioner Family; Visit Provider Orthopaedic Surgery
DX: M41.9 Scoliosis, unspecified (principal)
CPT/HCPCS: 36415; 80053; 82306